=== PATIENT | female | born 1935 | race Caucasian/White ===

== ENCOUNTER 2020-11-27 10:23 | Inpatient (IN) | payer MEDICARE ==
[2020-11-27] MEDS ORDERED: Iopamidol-370 76% 500 ML 1 ML ONE (12:17)
--- NOTE | 2020-11-27 14:31 | PDOC.HHP ---
Hospitalist HPI - History of Present Illness Persistent hypoxia History of Present Illness: This is a 85-year-old white female with a history of cerebrovascular disease and a recent stroke as well as atrial fibrillation. She was in rehabilitation after her stroke and was starting to ambulate decently after 3 weeks but then had a sudden decline and hypoxia. She was admitted to [facility] with bilateral multifocal pneumonia. Her Covid test was negative x2. She had a CT scan without contrast that showed possible aspiration material in her bronchi. Apparently radiology would not do a CT with contrast to look for pulmonary emboli because she is starting to have dementia and her son did not know if she had a contrast allergy. She was evaluated by cardiology over at [facility] who recommended control of heart rate but did not think her congestive heart failure was the major actor in her hypoxia. She did have an elevated brain natretic peptide at that time. Patient required high doses of oxygen during her hospitalization. She was on broad-spectrum an tibiotics and completed a course of cefepime and vancomycin. Patient was still requiring high doses of oxygen 5 to 6 L and desaturating during physical therapy so the hospitalist at [facility] discussed the case with patient's son and recommended transferring to [facility] for pulmonology consult. Patient is without complaints at the bedside. She knows she is in a hospital but thought she was still in [place]. She did not know the year. She cannot remember why she is here. Hospitalist ROS - Review of Systems Constitutional: denies: fever, chills Eyes: denies: vision change, conjunctivae inflammation, eyelid inflammation Respiratory: denies: cough, shortness of breath Cardiovascular: denies: chest pain, palpitations Gastrointestinal: denies: nausea, vomiting, abdominal pain, diarrhea, constipation Genitourinary: denies: dysuria, hematuria Musculoskeletal: denies: neck pain, back pain Skin: denies: rash, lesions Neurological: reports: weakness All other systems reviewed; all pertinent +/- noted in HPI/Subj Hospitalist History - Past Medical History Source: patient, old records Other Medical History: 1. Cerebrovascular disease with recent stroke and residual right-sided weakness 2. Hypertension 3. Atrial fibrillation with diastolic dysfunction 4. Diabetes mellitus type 2 5. Oropharyngeal dysphagia 6. Hyperlipidemia - Past Surgical History Other Surgical History: No known surgeries - Family History Other Family History: No known family medical history - Social History Other Social History: No known history of alcohol tobacco or illicit drugs. Patient's medical power of civil attorney is her son Abdelrahman Monaco. Patient is a do not attempt resuscitation. - Exam General Appearance: NAD, awake alert Eye: PERRL, anicteric sclera ENT: moist mucosa ENT - other findings: On 5 L nasal cannula O2 Neck: supple, symmetric, no JVD Heart: RRR, no murmur, no gallops, no rubs Respiratory: CTAB, no wheezes, no rales, no ronchi Gastrointestinal: soft, non-tender, non-distended, normal bowel sounds Extremities: no cyanosis, no clubbing, no edema Skin: normal turgor, no rashes Neurological: cranial nerve grossly intact Neurological - other findings: Right upper and lower extremity weaker than the left Musculoskeletal: normal tone Psychiatric: normal affect, normal behavior, oriented to person. negative: oriented to place, oriented to time Hospitalist Results - Labs Additional comment: Lab and imaging reviewed from [facility]. Hospitalist H&P A/P - Plan Plan: Acute hypoxic respiratory failure: Patient had x-ray consistent with bacterial pneumonia and CT with concern for aspiration. However she still requires high doses of oxygen even after a full course of antibiotic treatment. No pulmonology consultation available at [facility]. Transfer was initiated for pulmonology consultation and consideration of bronchoscopy. I did consult Dr. Benson our scuba dive training instructor and discussed the case with him. No indications for bronchoscopy at this time. Suspect that patient may have continued congestive heart failure versus pulmonary embolism as source continued hypoxia. Patient has no known contrast allergy so after discussion with Dr. Benson will get a CTA of the chest. We will resume IV Lasix which was discontinued at [facility]. Pneumonia- possible aspiration: Patient had multifocal bilateral opacities on her initial chest x-ray. CT without contrast with bibasilar infiltrate, possible aspirated food, and some right upper lobe infiltrate. No overt aspiration on ST eval, modified barium swallow showing some aspiration with thin liquids by spoon. She has remained afebrile. Hypoxia improved initially but still on 6 L nasal cannula and desats with ambulation. Blood cultures have remained negative. Oropharyngeal dysphagia: Mild, thin liquids only Speech therapy has recommended thickening liquids to nectar thick NDD-2 ground with extra sauce/gravy Modified Barium Swallow IMPRESSION: Single episode of tracheal aspiration and penetration with thin barium liquids by spoon. No episodes of tracheal aspiration or penetration with thin barium liquids by cup. No episodes of tracheal aspiration or penetration with thin barium nectar, thick barium liquids, pudding and barium impregnated cookie. Reference speech pathology report for further details. Atrial fibrillation: New onset. Patient was initially controlled with diltiazem and carvedilol. However, she did eventually develop some bradycardia and the medicines had to be decreased. Continue with low-dose Eliquis which was started at [facility].. Hypertension: Continue Coreg, diltiazem, lisinopril. Awaiting discharge medication list from [facility]. Adjust dosing as indicated. Diabetes mellitus: Blood sugars controlled. Currently on Lantus with 10 units nightly and sliding scale insulin We will resume Metformin. Anxiety/depression: Continue with Zoloft and BuSpar. 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 Patient appears to still be requiring a significant amount of assistance. May need to consider additional rehab at discharge. I discussed clinical course, improvement, planned MBS, and possibility of rehab with son when she was at [facility] and he is interested in [facility] re[facility] should that be necessary on discharge. I did call patient's son again today and updated him about the patient's current status and our plan to do a CT angiography of the chest. The son did reiterate the patient is a do not attempt resuscitation.
[2020-11-27] MEDS ORDERED: Guaifenesin DM 100-10/5 ML UDCUP PO PRN (14:34)
[2020-11-27] MEDS ORDERED: Acetaminophen 650 MG Suppository PR PRN (14:34)
[2020-11-27] MEDS ORDERED: Senokot S 8.6-50 MG TAB PO PRN (14:34)
[2020-11-27] MEDS ORDERED: Acetaminophen 325 MG TAB PO PRN (14:34)
[2020-11-27] MEDS ORDERED: Ondansetron ODT 4 MG TAB PO PRN (14:34)
[2020-11-27] MEDS ORDERED: Ondansetron PF 4 MG/2 ML Vial IVP PRN (14:34)
[2020-11-27] MEDS ORDERED: Melatonin 3 MG TAB PO PRN (16:55)
[2020-11-27] MEDS ORDERED: Dextrose 5% in Water 1,000 ML IV PRN (16:58)
[2020-11-27] MEDS ORDERED: HumaLOG 300 UNITS/3 ML VIAL SC PRN (16:58)
[2020-11-27] MEDS ORDERED: Dextrose 50% Abboject 50 ML SYRINGE SLOW IVP PRN (16:58)
[2020-11-27] MEDS ORDERED: Furosemide 40 MG/4 ML VIAL SLOW IVP SCH (17:00)
[2020-11-27] MEDS: Carvedilol 6.25 MG TAB PO SCH (17:59)
--- NOTE | 2020-11-27 21:00 | CT ---
CT ANGIOGRAM OF THE CHEST: History: Hypoxia. Pulmonary embolism evaluation. Shortness of breath. Covid patient. Comparison: None. Correlation: Noncontrast chest CT, 11-22-2020 Technique: CT angiogram of the chest is performed in the axial plane. 3D reformatted images are submi tted for interpretation. FINDINGS: Mediastinum: No mass, lymphadenopathy or hematoma. There are non-enlarged mediastinal lymph nodes. Normal caliber aorta. Normal heart size. There are scattered coronary calcifications. No significant pericardial fluid. Reflux of contrast into the inferior vena cava suggesting right heart failure. Visualized Subdiaphrag matic structures do not demonstrate any acute abnormality. There are bilateral pleural effusions. Tracheal and central bronchi are patent. No pneumothorax. Re-demonstration of multifocal interstitial and alveolar opacities predominately in the right upper l obe, left upper lobe. Additional dependent opacities in the lung parenchyma may represent passive ate lectasis secondary to adjacent effusion. Superimposed pneumonia and/or aspiration cannot be excluded. There is a developing more focal mass-like opacity in the right upper lobe with slightly irregular m argin, measuring 1.4 x 1.2 cm. There are no lytic or blastic lesions within the osseous structures. There is a chronic remote compression deformity with vertebroplasty change in the lower thoracic spin e. Adequate contrast opacification of the pulmonary arterial system to the level of the segmental arteri es. No filling defect to suggest thromboembolism. IMPRESSION: 1. No evidence of pulmonary artery embolism to the level of the segmental arteries. 2. Re-demonstration of bilateral pleural effusion as well as multifocal lung parenchymal opacity . The distribution is not typical for Covid. Correlation for possible aspiration in the lung bases. 3. Developing mass-like opacity in the right upper lobe may represent a focal pneumonia. Continu ed surveillance to ensure complete resolution is recommended. POS: PPP
[2020-11-27] MEDS: guaiFENesin ER 600 MG TAB PO SCH (21:06)
[2020-11-27] MEDS: busPIRone HCl 5 MG TAB PO SCH (21:06)
[2020-11-27] MEDS: Atorvastatin Calcium 20 MG TAB PO SCH (21:07)
[2020-11-27] MEDS: Donepezil HCl 5 MG TAB PO SCH (21:07)
[2020-11-27] MEDS: Apixaban 5 MG TAB PO SCH (21:07)
[2020-11-27] MEDS: Famotidine 20 MG TAB PO SCH (21:07)
[2020-11-27] MEDS: Magnesium Oxide 400 MG TAB PO SCH (21:07)
[2020-11-27] MEDS: Insulin Glargine 8 UNITS in Pre-Filled Syringe 1 EACH SC SCH (21:10)
--- NOTE | 2020-11-27 21:46 | CON ---
DATE OF CONSULTATION: 11/27/2020 REASON FOR CONSULTATION: Possible need for bronchoscopy, given persistent infiltrates on x-ray. HISTORY OF PRESENT ILLNESS: The patient is a pleasantly demented 85-year-old female who was first admitted to the [facility] on 11/17/2020. At that time, she was complaining of increasing shortness of breath. She was noted to have a lower lobe infiltrate. She was put on antibiotics for multifocal pneumonia. It looks like she was seen by a Cardiology PA or nurse practitioner over there. I do not see any notes from a cardiology physician. The patient was transferred over here for possible need for bronchoscopy because her infiltrates not improved. She had bilateral effusions which have not been addressed and she has not been treated with any diuretics. An echocardiogram taken on 11/20/2020 showed diastolic dysfunction, dilated left atrium and mild mitral regurgitation. PAST MEDICAL HISTORY: Hypertension, stroke, dementia, diabetes mellitus. PAST SURGICAL HISTORY: Not known. SOCIAL HISTORY: Not known about tobacco or drug use in the past. The patient cannot have anything in the history. FAMILY MEDICAL HISTORY: Noncontributory. MEDICATIONS: Prior to admission: 1. Amlodipine. 2. Anastrozole. 3. Insulin. 4. Melatonin. 5. Metformin. 6. Atorvastatin. 7. Buspirone. 8. Carvedilol. 9. Donepezil. 10. Hydralazine. 11. Lisinopril. 12. Sertraline. REVIEW OF SYSTEMS: Not accurate secondary to patient's dementia. ALLERGIES: SULFA DRUGS. PHYSICAL EXAMINATION: VITAL SIGNS: Temperature 97.4, pulse 60, respirations 18, O2 sat 94% on 6 L, blood pressure 160/65. GENERAL: She is awake, alert, in no distress. HEENT: Unremarkable. NECK: No adenopathy or JVD. LUNGS: Scattered crackles. She also had diminished breath sounds in both bases. CARDIAC: S1, S2. Regular. ABDOMEN: Soft and nontender. EXTREMITIES: No clubbing, cyanosis, or edema. LABORATORY DATA: Her initial white blood cell count when she was admitted on 11/17 was 12.5, most recent one is 7.7; hematocrit 37.4, platelet count 376. Sodium 142, potassium 3.4, chloride 103, CO2 of 30, BUN 8, creatinine 0.5, glucose 111. Last BNP for 11/20 was 422. COVID test was negative. I reviewed the CT scan in detail. ASSESSMENT: This patient is presenting with either pneumonia or atypical pulmonary edema. She also has bilateral effusions suggestive of chronic diastolic heart dysfunction. Her albumin is somewhat low, but probably not low enough to cause pleural effusions. Her current unresolving hypoxemia may be secondary to the pneumonia. The heart failure or possibly pulmonary embolism. RECOMMENDATIONS: 1. Bronchoscopy is not indicated in this situation. 2. I would leave off antibiotics for the time being. 3. CT pulmonary angiogram to rule out PE. 4. Consider diuretics if CT pulmonary angiogram is negative. Job ID: [id number]
[2020-11-28] MEDS: Furosemide 40 MG/4 ML VIAL SLOW IVP SCH ×2 (05:16→14:41)
[2020-11-28 06:15] LABS: #Basophils 0.1 thou/uL (0.0-0.2); #Eosinphils 0.1 thou/uL (0.0-0.7); #Lymphocytes 2.1 thou/uL (1.20-3.40); #Monocytes 0.8 thou/uL (0.11-0.59); #Neutrophils 4.5 thou/uL (1.40-6.50); %Basophils 0.7 % (0.0-1.0); %Eosinophils 1.4 % (0.0-10.0); %Lymphocytes 27.4 % (21.0-51.0); %Monocytes 11.2 % (0.0-10.0); %Neutrophils 59.3 % (42.0-75.0); Hemoglobin 12.7 g/dL (12.0-16.0); Mean Corpuscular HGB CONC 32.9 g/dL (32.0-36.0); Mean Corpuscular Hemoglobin 29.4 pg (27.0-31.0); Mean Corpuscular Volume 89.2 fL (78.0-98.0); Mean Platelet Volume 6.1 fL (7.4-10.4); Platelet Count 419 thou/uL (130-400); RBC Distribution Width 13.9 % (11.5-14.5); Red Blood Cell (RBC) Count 4.33 mill/uL (4.20-5.40); White Blood Cell (WBC) Count 7.5 thou/uL (4.8-10.8)
[2020-11-28 06:38] LABS: Anion Gap 12 mmol/L (10-20); BUN (Urea Nitrogen) 8 mg/dL (9.8-20.1); Calc. Creatinine Clearance 64 mL/min (70-130); Calcium 8.1 mg/dL (7.8-10.44); Carbon Dioxide 31 mmol/L (23-31); Chloride 98 mmol/L (98-107); Glucose 114 mg/dL (83-110); Potassium 3.1 mmol/L (3.5-5.1); Sodium 138 mmol/L (136-145)
--- NOTE | 2020-11-28 08:18 | PDOC.HOSPP ---
- Subjective Encounter Date: 11/28/20 Encounter Time: 11:15 Subjective: Patient sitting up at side of bed with physical therapy. She denies complaints. Saturating well on nasal cannula oxygen at 4 L currently. They have not tried to stand patient up today. - Objective Vital Signs & Weight: Vital Signs (12 hours) Temp Pulse Resp BP Pulse Ox 11/28/20 07:43 97.4 F L 51 L 18 166/72 H 98 11/28/20 03:30 97.5 F L 59 L 20 169/79 H 99 11/28/20 00:45 166/81 H 11/27/20 23:35 97.4 F L 60 22 H 199/71 H 99 Weight Weight 132 lb 3.2 oz I&O: 11/27/20 11/28/20 11/29/20 06:59 06:59 06:59 Intake Total 134 Output Total 800 Balance -666 Result Diagrams: 11/28/20 05:50 11/28/20 05:50 Additional Labs: Accuchecks 11/28/20 11/27/20 11/27/20 05:50 21:10 16:44 POC Glucose 104 H 187 H 121 H Hospitalist ROS - Review of Systems Constitutional: denies: fever, chills Respiratory: denies: cough, shortness of breath Cardiovascular: denies: chest pain, palpitations Gastrointestinal: denies: nausea, vomiting, abdominal pain - Medication Medications: Active Medications Generic Name Dose Route Start Last Admin Trade Name Freq PRN Reason Stop Dose Admin Apixaban 5 mg 11/27/20 21:00 11/27/20 21:07 Apixaban 5 Mg Tab PO 5 mg BID BITA Administration Atorvastatin Calcium 20 mg 11/27/20 21:00 11/27/20 21:07 Atorvastatin Calcium 20 Mg Tab PO 20 mg HS BITA Administration Buspirone HCl 5 mg 11/27/20 21:00 11/27/20 21:06 Buspirone Hcl 5 Mg Tab PO 5 mg TID BITA Administration Carvedilol 12.5 mg 11/27/20 17:00 11/27/20 17:59 Carvedilol 6.25 Mg Tab PO 12.5 mg BID-WM BITA Administration Donepezil HCl 5 mg 11/27/20 21:00 11/27/20 21:07 Donepezil Hcl 5 Mg Tab PO 5 mg HS BITA Administration Famotidine 20 mg 11/27/20 21:00 11/27/20 21:07 Famotidine 20 Mg Tab PO 20 mg BID BITA Administration Furosemide 40 mg 11/28/20 06:00 11/28/20 05:16 Furosemide 40 Mg/4 Ml Vial SLOW IVP 40 mg 0600,1400 BITA Administration Guaifenesin 1,200 mg 11/27/20 21:00 11/27/20 21:06 Guaifenesin Er 600 Mg Tab PO Not Given Q12HR [facility] Insulin Glargine 8 units/ 0.08 mls @ 0 mls/hr 11/27/20 21:00 11/27/20 21:10 Miscellaneous Medication SC 0.08 mls HS BITA Administration Magnesium Oxide 400 mg 11/27/20 21:00 11/27/20 21:07 Magnesium Oxide 400 Mg Tab PO 400 mg BID BITA Administration Melatonin 3 mg 11/27/20 16:55 11/27/20 23:59 Melatonin 3 Mg Tab PO 3 mg HSPRN PRN Administration Insomnia Sertraline HCl 25 mg 11/27/20 21:00 11/27/20 21:06 Sertraline Hcl 25 Mg Tab PO 25 mg TID BITA Administration Hospitalist Exam Vitals: Vital Signs (12 hours) Temp Pulse Resp BP Pulse Ox 11/28/20 07:43 97.4 F L 51 L 18 166/72 H 98 11/28/20 03:30 97.5 F L 59 L 20 169/79 H 99 11/28/20 00:45 166/81 H 11/27/20 23:35 97.4 F L 60 22 H 199/71 H 99 Weight Weight 132 lb 3.2 oz General Appearance: NAD, awake alert ENT: moist mucosa Heart: RRR, no murmur, no gallops, no rubs Respiratory: CTAB, no wheezes, no rales, no ronchi Gastrointestinal: soft, non-tender, non-distended, normal bowel sounds Skin: no rashes Psychiatric: normal affect, normal behavior Hosp A/P - Plan Acute hypoxic respiratory failure: Patient had x-ray consistent with bacterial pneumonia and CT with concern for aspiration. However she still requires high doses of oxygen even after a full course of antibiotic treatment. No pulmonology consultation available at [facility]. Transfer was initiated for pulmonology consultation and consideration of bronchoscopy. I did consult Dr. Benson our oracle bpm developer and discussed the case with him. No indications for bronchoscopy at this time. Suspect that patient may have continued congestive heart failure versus pulmonary embolism as source continued hypoxia. Patient has no known contrast allergy so after discussion with Dr. Benson will get a CTA of the chest- no PE found, c/w congestion and aspiration We will resumed IV Lasix which was discontinued at [facility]. Patient's O2 sats seem to be doing a little better today. Pneumonia- possible aspiration: Patient had multifocal bilateral opacities on her initial chest x-ray. CT without contrast with bibasilar infiltrate, possible aspirated food, and some right upper lobe infiltrate. No overt aspiration on ST eval, modified barium swallow showing some aspiration with thin liquids by spoon. She has remained afebrile. Hypoxia improved initially but still on 5 L nasal cannula and desats with ambulation. Blood cultures have remained negative. Patient completed entire course of Cefepime and Vancomycin. Oropharyngeal dysphagia: Mild, thin liquids only Speech therapy has recommended thickening liquids to nectar thick NDD-2 ground with extra sauce/gravy Modified Barium Swallow IMPRESSION: Single episode of tracheal aspiration and penetration with thin barium liquids by spoon. No episodes of tracheal aspiration or penetration with thin barium liquids by cup. No episodes of tracheal aspiration or penetration with thin barium nectar, thick barium liquids, pudding and barium impregnated cookie. Reference speech pathology report for further details. Atrial fibrillation: New onset. Patient was initially controlled with diltiazem and carvedilol. However, she did eventually develop some bradycardia and the medicines had to be decreased. Continue with low-dose Eliquis which was started at [facility].. Hypertension: Continue Coreg, diltiazem, lisinopril. Awaiting discharge medication list from [facility]. Adjust dosing as indicated. Diabetes mellitus: Blood sugars controlled. Currently on Lantus with 10 units nightly and sliding scale insulin We will resume Metformin. Anxiety/depression: Continue with Zoloft and BuSpar. 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 Patient appears to still be requiring a significant amount of assistance. May need to consider additional rehab at discharge. I discussed clinical course, improvement, planned MBS, and possibility of rehab with son when she was at [facility] and he is interested in [facility] rehab should that be necessary on discharge. I did call patient's son again today and updated him about the patient's current status and our plan to do a CT angiography of the chest. The son did reiterate the patient is a do not attempt resuscitation. Hypokalemia: We will replete orally. We will recheck a basic metabolic panel in the morning. CT ANGIOGRAM OF THE CHEST: (11/27/2020) IMPRESSION: 1. No evidence of pulmonary artery embolism to the level of the segmental arteries. 2. Re-demonstration of bilateral pleural effusion as well as multifocal lung parenchymal opacity. The distribution is not typical for Covid. Correlation for possible aspiration in the lung bases. 3. Developing mass-like opacity in the right upper lobe may represent a focal pneumonia. Continued surveillance to ensure complete resolution is recommended.
[2020-11-28] MEDS: Carvedilol 6.25 MG TAB PO SCH ×2 (08:42→16:23)
[2020-11-28] MEDS: Magnesium Oxide 400 MG TAB PO SCH ×2 (08:42→21:24)
[2020-11-28] MEDS: guaiFENesin ER 600 MG TAB PO SCH ×2 (08:43→21:24)
[2020-11-28] MEDS: busPIRone HCl 5 MG TAB PO SCH ×3 (08:43→21:23)
[2020-11-28] MEDS: metFORMIN 500 MG TAB PO SCH (08:43)
[2020-11-28] MEDS: Apixaban 5 MG TAB PO SCH ×2 (08:43→21:23)
[2020-11-28] MEDS: Famotidine 20 MG TAB PO SCH ×2 (08:43→21:24)
[2020-11-28] MEDS: Lisinopril 20 MG TAB PO SCH (08:43)
[2020-11-28] MEDS: Anastrozole 1 MG TAB PO SCH (08:43)
--- NOTE | 2020-11-28 09:52 | PRG ---
DATE OF SERVICE: 11/28/2020 SUBJECTIVE: The patient feels better today. Her oxygen has been weaned down to 4 L and her O2 saturations running about 98%. Her chest CT showed some interstitial changes bilaterally indicative of recent pneumonia. She also has had bilateral effusions, but no pulmonary emboli. OBJECTIVE: HEENT: Unremarkable. NECK: No JVD. LUNGS: Clear. CARDIAC: S1 and S2. Regular. ABDOMEN: Soft. EXTREMITIES: No edema. ASSESSMENT: 1. Probably aspiration pneumonia in the resolution phase. 2. Pleural effusions, probably indicative of diastolic heart failure. PLAN: I would diurese the patient some. The x-ray changes should resolve with time provided she is not chronically aspirating. No further recommendations. We will sign off. Please recall if further assistance needed. Job ID: [id number] [facility]
--- NOTE | 2020-11-28 12:14 | EKG ---
Test Reason : Blood Pressure : / mmHG Vent. Rate : 056 BPM Atrial Rate : 056 BPM P-R Int : 324 ms QRS Dur : 080 ms QT Int : 470 ms P-R-T Axes : 079 -24 032 degrees QTc Int : 453 ms Sinus bradycardia with marked sinus arrhythmia with 1st degree A-V block Inferior infarct , age undetermined Possible Anterior infarct , age undetermined Abnormal ECG Confirmed by DR. Tsering ANGUIANO ([id number]) on 11/28/2020 12:14:18 PM Referred By: CJ Confirmed By:DR. Tsering ANGUIANO
[2020-11-28] MEDS: HumaLOG 300 UNITS/3 ML VIAL SC PRN ×2 (12:34→16:23)
[2020-11-28] MEDS ORDERED: Potassium Chloride 20 MEQ TAB PO SCH (14:30)
[2020-11-28] MEDS: Insulin Glargine 8 UNITS in Pre-Filled Syringe 1 EACH SC SCH (21:23)
[2020-11-28] MEDS: Atorvastatin Calcium 20 MG TAB PO SCH (21:23)
[2020-11-28] MEDS: Donepezil HCl 5 MG TAB PO SCH (21:23)
[2020-11-29] MEDS: Furosemide 40 MG/4 ML VIAL SLOW IVP SCH ×2 (05:04→13:07)
[2020-11-29 06:20] LABS: Hemoglobin 13.3 g/dL (12.0-16.0); Platelet Count 432 thou/uL (130-400)
[2020-11-29 06:37] LABS: Anion Gap 16 mmol/L (10-20); BUN (Urea Nitrogen) 13 mg/dL (9.8-20.1); Calc. Creatinine Clearance 61 mL/min (70-130); Calcium 8.5 mg/dL (7.8-10.44); Carbon Dioxide 29 mmol/L (23-31); Chloride 98 mmol/L (98-107); Glucose 128 mg/dL (83-110); Potassium 3.4 mmol/L (3.5-5.1); Sodium 140 mmol/L (136-145)
[2020-11-29] MEDS: Carvedilol 6.25 MG TAB PO SCH (07:56)
[2020-11-29] MEDS: Magnesium Oxide 400 MG TAB PO SCH (07:57)
[2020-11-29] MEDS: busPIRone HCl 5 MG TAB PO SCH ×2 (07:57→14:46)
[2020-11-29] MEDS: Famotidine 20 MG TAB PO SCH (07:57)
[2020-11-29] MEDS: guaiFENesin ER 600 MG TAB PO SCH (07:57)
[2020-11-29] MEDS: Apixaban 5 MG TAB PO SCH (07:58)
[2020-11-29] MEDS: Lisinopril 20 MG TAB PO SCH (07:58)
[2020-11-29] MEDS: Anastrozole 1 MG TAB PO SCH (07:58)
[2020-11-29] MEDS: metFORMIN 500 MG TAB PO SCH (07:58)
[2020-11-29] MEDS ORDERED: Potassium Chloride 20 MEQ TAB PO SCH (08:00)
[2020-11-29] MEDS ORDERED: HYDROcodone/Acetaminophen 5/325 mg Tablet PO PRN (08:38)
[2020-11-29] MEDS ORDERED: Sodium Chloride 0.65% Nasal 44 ML BOT EA NARE PRN (08:38)
[2020-11-29] MEDS ORDERED: Loperamide HCl 2 MG CAP PO PRN (08:38)
[2020-11-29] MEDS ORDERED: Zolpidem Tartrate 5 MG TAB PO PRN (08:38)
[2020-11-29] MEDS ORDERED: Cepastat Lozenges 1 LOZ PO PRN (08:38)
[2020-11-29] MEDS ORDERED: GUAIFENESIN SF SOLN 200 MG/10 ML UDCUP PO PRN (08:38)
[2020-11-29] MEDS ORDERED: Loratadine 10 MG TAB PO PRN (08:38)
[2020-11-29] MEDS ORDERED: hydrALAZINE 20 MG/ML VIAL SLOW IVP PRN (08:38)
--- NOTE | 2020-11-29 12:20 | PDOC.DS.DS ---
Provider Date of Admission: 11/27/20 12:24 Date of Discharge: 11/29/20 Admitting Provider: Johnnie Mullins MD Consultations: Pulmonary Primary Care Physician: NO PCP PROVIDER Course Hospital Course: 85-year-old female who was admitted to [facility] on November 17, 2020, on admission patient had echocardiography which showed diastolic dysfunction, pulmonary hypertension, CT chest on November 21, 2020 which showed bilateral and right upper lobe parenchymal opacity, bibasilar consolidation was possible, suspected for aspiration pneumonia, patient also had moderate bilatera l pleural fluid, patient was evaluated by speech therapy and patient also had modified barium swallow, cardiology was also following during her admission at [facility], patient was discharged from the hospital on November 27, 2020 for pulmonology evaluation, reason for transfer was possible need for bronchoscopy, after admission in our hospital we consulted pulmonology, pulmonology recommended that bronchoscopy not indicated, CT angiogram was recommended and it was negative for pulmonary embolism, subsequently based on that finding we initiated diuretic therapy and patient had some improvement, patient will need repeat imaging after diuretic therapy, I have seen and examined patient bedside today, patient is lying flat without any short of breath, she is maintaining saturation 98% on 2 to 3 L, during this admission we have increased Lasix to 40 mg p.o. twice daily upon discharge and while in hospital she was given IV Lasix. She does not appear significant volume overload at this point. Regarding aspiration pneumonia patient has been completed antibiotic therapy at other hospital, she was not requiring any antibiotic therapy on discharge. Paperwork for discharge done, patient is going to rehab for more PT OT Resuscitation Status: 11/27/20 16:49 Resuscitation Status Routine Resuscitation Status: DNAR: NO Resuscitation Discussed with: Patient's son and MPOA Lab Results: 11/29/20 05:42 11/29/20 05:42 Abnormal Lab Results - Last 48 hrs 11/28/20 05:50: Potassium 3.1 L, BUN 8 L 11/28/20 05:50: Plt Count 419 H, MPV 6.1 L, Monocytes % 11.2 H, Monocytes # 0.8 H 11/29/20 05:42: Potassium 3.4 L 11/29/20 05:42: Plt Count 432 H Vitals: Vital Signs (12 hours) Temp Pulse Resp BP Pulse Ox 11/29/20 12:00 97.4 F L 59 L 20 169/80 H 98 11/29/20 08:00 97.8 F 60 22 H 165/75 H 97 11/29/20 07:55 60 16 97 11/29/20 04:00 97.8 F 59 L 18 170/80 H 96 Weight Weight 132 lb 3.2 oz Physical Exam: The patient was seen and examined on the day of discharge. General Appearance: NAD, awake alert Eye: PERRL, anicteric sclera ENT: normocephalic atraumatic, no oropharyngeal lesions Neck: supple, symmetric, no JVD, no thyromegaly Respiratory: no wheezes, no ronchi Respiratory - other findings: Few coarse breath sound at base, Cardiovascular: RRR, no murmur, no gallops, no rubs Gastrointestinal: soft, non-tender, non-distended, normal bowel sounds Extremities: no cyanosis, no clubbing, no edema Skin: normal turgor, no lesions Neurological: no focal deficits Musculoskeletal: normal tone, normal strength PSYCH: normal affect, normal behavior Problem (1) Acute on chronic diastolic heart failure Code(s): I50.33 - ACUTE ON CHRONIC DIASTOLIC (CONGESTIVE) HEART FAILURE Status: Acute (2) Aspiration pneumonia Code(s): J69.0 - PNEUMONITIS DUE TO INHALATION OF FOOD AND VOMIT Status: Resolved (3) Acute respiratory failure with hypoxia Code(s): J96.01 - ACUTE RESPIRATORY FAILURE WITH HYPOXIA Status: Acute (4) Anxiety and depression Code(s): F41.9 - ANXIETY DISORDER, UNSPECIFIED; F32.9 - MAJOR DEPRESSIVE DISOR MIRI, SINGLE EPISODE, UNSPECIFIED Status: Chronic (5) Atrial fibrillation Code(s): I48.91 - UNSPECIFIED ATRIAL FIBRILLATION Status: Chronic Qualifiers: Atrial fibrillation type: paroxysmal Qualified Code(s): I48.0 - Paroxysmal atrial fibrillation (6) Hypertension Code(s): I10 - ESSENTIAL (PRIMARY) HYPERTENSION Status: Chronic Qualifiers: Hypertension type: essential hypertension Qualified Code(s): I10 - Essential (primary) hypertension (7) Dementia Code(s): F03.90 - UNSPECIFIED DEMENTIA WITHOUT BEHAVIORAL DISTURBANCE Status: Chronic Qualifiers: Dementia behavioral disturbance: without behavioral disturbance (8) Physical deconditioning Code(s): R53.81 - OTHER MALAISE Status: Chronic Plan Prescriptions: Furosemide [Lasix] 40 mg PO BID #60 tab Home Medications: Medication Instructions Recorded Confirmed Type Amlodipine Besylate [amLODIPine 10 mg PO DAILY 11/18/20 11/28/20 History Besylate] Anastrozole [Arimidex] 1 mg PO DAILY 11/18/20 11/28/20 History Atorvastatin Calcium [Lipitor] 20 mg pe PO HS 11/18/20 11/28/20 History Donepezil HCl [Aricept] 5 mg PO HS 11/18/20 11/28/20 History Insulin Detemir [Levemir Flextouch] 8 units SC DAILY 11/18/20 11/28/20 History Ondansetron [Zofran ODT] 4 mg PO Q8HR PRN 11/18/20 11/28/20 History Sertraline HCl [Zoloft] 25 mg PO TID 11/18/20 11/28/20 History busPIRone HCl [Buspar] 5 mg PO TID 11/18/20 11/28/20 History hydrALAZINE HCl [Hydralazine HCl] 50 mg PO Q8HR 11/18/20 11/28/20 History metFORMIN [Glucophage] 500 mg PO HS 11/18/20 11/28/20 History Acetaminophen [Tylenol Regular 650 mg PO Q4H PRN tab 11/27/20 11/28/20 Rx Strength] Apixaban [Eliquis] 2.5 mg PO BID tab 11/27/20 11/28/20 Rx Magnesium Oxide 400 mg PO BID tab 11/27/20 11/28/20 Rx guaiFENesin ER [Mucinex] 1,200 mg PO Q12HR tab 11/27/20 11/28/20 Rx ALPRAZolam 0.25 mg PO BID PRN 11/28/20 11/28/20 History Alendronate Sodium 70 mg PO Q7DAYS 11/28/20 11/28/20 History Carvedilol [Coreg] 2 tab PO BID 11/28/20 11/28/20 History Gabapentin 100 mg PO DAILY 11/28/20 11/28/20 History Lisinopril [Zestril] 20 mg PO DAILY 11/28/20 11/28/20 History Metoprolol Tartrate 25 mg PO 11/28/20 History traZODone HCl [Trazodone HCl] 75 mg PO HS 11/28/20 11/28/20 History Furosemide [Lasix] 40 mg PO BID #60 tab 11/29/20 Rx Allergies: Sulfa (Sulfonamide Antibiotics) Allergy (Verified 11/17/20 21:38) Activity:: Activity as Tolerated Nourishment:: Heart Healthy Diet Therapies:: Occupational Therapy, Physical Therapy Equipment/Supplies:: Not Applicable IV Therapy:: Not Applicable Referrals: PROVIDER,NO PCP [Primary Care Provider] - Flash Benson MD [Active] - ( DIRECTED ) Disposition: REHABILITATION INPATIENT Quality CORE MEASURES:: N/A
[2020-11-29] MEDS: HumaLOG 300 UNITS/3 ML VIAL SC PRN (13:07)
[2020-11-29 15:30] VITALS: BP 129/70; TEMP 97.8
== END 2020-11-29 15:45 | DRG 177 ==
LOC: T4-A 12:24
PROVIDERS: ADMIT Internal Medicine; ATTEND Internal Medicine
DX: J69.0 Pneumonitis due to inhalation of food and vomit (principal); I50.33 Acute on chronic diastolic (congestive) heart failure; J96.01 Acute respiratory failure with hypoxia; I69.351 Hemiplegia and hemiparesis following cerebral infarction affecting right dominant side; Z66 Do not resuscitate; Z20.822 Contact with and (suspected) exposure to COVID-19; F41.9 Anxiety disorder, unspecified; F32.9 Major depressive disorder, single episode, unspecified; I48.0 Paroxysmal atrial fibrillation; F03.90 Unspecified dementia, unspecified severity, without behavioral disturbance, psychotic disturbance, mood disturbance, and anxiety; R13.12 Dysphagia, oropharyngeal phase; I11.0 Hypertensive heart disease with heart failure; E78.5 Hyperlipidemia, unspecified; E11.9 Type 2 diabetes mellitus without complications; I34.0 Nonrheumatic mitral (valve) insufficiency; E87.6 Hypokalemia; Z88.2 Allergy status to sulfonamides; Z78.1 Physical restraint status; Z79.899 Other long term (current) drug therapy; Z79.84 Long term (current) use of oral hypoglycemic drugs
CPT/HCPCS: 36415; 36416; 71275; 80048; 85014; 85018; 85025; 85049; 93005; 93010; J1815; J1940; Q9967

== ENCOUNTER 2021-01-22 16:12 | Inpatient (IN) | payer MEDICARE ==
[~2021-01-22 16:12] MED LIST: Iopamidol-370 76% 500 ML 1 ML ONE
[2021-01-22 17:10] LABS: Bilirubin Negative (Negative); Blood, Urine Negative (Negative); Clarity Turbid (Clear); Glucose, Urine (Dipstick) Normal (Negative); Ketone, Urine Negative (Negative); Leukocyte 250 Leu/uL (Negative); Nitrite 2+ (Negative); Protein, Urine (Dipstick) Negative (Neg-Trace); RBC/HPF 0-3 HPF (0-3); Specific Gravity, Urine 1.014 (1.002-1.036); Squamous Epithelial 0-3 HPF (0-3); Urobilinogen Normal mg/dL (Less than 2); WBC/HPF 21-50 HPF (0-3); pH, Urine 6.5 (5.0-9.0)
[2021-01-22 17:11] LABS: #Eosinphils 0.1 thou/uL (0.0-0.7); #Neutrophils 6.7 thou/uL (1.40-6.50); %Basophils 0.4 % (0.0-1.0); %Eosinophils 0.7 % (0.0-10.0); %Lymphocytes 20.5 % (21.0-51.0); %Monocytes 10.2 % (0.0-10.0); %Neutrophils 68.1 % (42.0-75.0); Hemoglobin 13.4 g/dL (12.0-16.0); Mean Corpuscular HGB CONC 31.8 g/dL (32.0-36.0); Mean Corpuscular Hemoglobin 28.9 pg (27.0-31.0); Mean Corpuscular Volume 90.8 fL (78.0-98.0); Mean Platelet Volume 6.7 fL (7.4-10.4); Platelet Count 348 thou/uL (130-400); RBC Distribution Width 14.3 % (11.5-14.5); Red Blood Cell (RBC) Count 4.65 mill/uL (4.20-5.40); White Blood Cell (WBC) Count 9.8 thou/uL (4.8-10.8)
[2021-01-22 17:12] LABS: Bacteria/HPF 1+ HPF (None Seen)
[2021-01-22] MEDS ORDERED: cefTRIAXone\\ROCEPHIN 2 GM VIAL ONE (17:22)
[2021-01-22 17:34] LABS: ALT (SGPT) 22 U/L (8-55); AST (SGOT) 21 U/L (5-34); Alkaline Phosphatase 79 U/L (40-110); Anion Gap 15 mmol/L (10-20); BUN (Urea Nitrogen) 11 mg/dL (9.8-20.1); Bilirubin, Total 0.7 mg/dL (0.2-1.2); CK (CPK) 44 U/L (29-168); Calc. Creatinine Clearance 0 mL/min (70-130); Calcium 8.7 mg/dL (7.8-10.44); Carbon Dioxide 25 mmol/L (23-31); Chloride 102 mmol/L (98-107); Globulin 3.3 g/dL (2.4-3.5); Glucose 206 mg/dL (83-110); Lipase 50 U/L (8-78); Potassium 3.8 mmol/L (3.5-5.1); Protein, Total 7.3 g/dL (5.8-8.1); Sodium 138 mmol/L (136-145)
[2021-01-22] MEDS ORDERED: Cefepime 2 GM VIAL ONE (19:12)
[2021-01-22] MEDS ORDERED: Vancomycin 1 GM/200 ML BAG ONE (19:55)
[2021-01-22] MEDS ORDERED: Dextrose 5% in Water 1,000 ML IV PRN (20:47)
[2021-01-22] MEDS ORDERED: Dextrose 50% Abboject 50 ML SYRINGE SLOW IVP PRN (20:47)
[2021-01-22] MEDS ORDERED: Acetaminophen 325 MG TAB PO PRN (20:47)
[2021-01-22] MEDS ORDERED: Furosemide 40 MG/4 ML VIAL SLOW IVP SCH (21:15)
[2021-01-22 21:37] LABS: SARS-CoV-2 NAA Rapid Test Not Detected (NotDetected)
[2021-01-22] MEDS: Azithromycin 500 MG in Sodium Chloride 0.9% 250 ML 250 ML IVPB SCH (22:08)
[2021-01-22 22:45] VITALS: BMI 21.1
[2021-01-23 05:59] LABS: #Eosinphils 0.1 thou/uL (0.0-0.7); #Lymphocytes 1.7 thou/uL (1.20-3.40); #Neutrophils 5.8 thou/uL (1.40-6.50); %Basophils 0.5 % (0.0-1.0); %Eosinophils 0.9 % (0.0-10.0); %Lymphocytes 19.6 % (21.0-51.0); %Monocytes 11.6 % (0.0-10.0); %Neutrophils 67.4 % (42.0-75.0); Hemoglobin 12.6 g/dL (12.0-16.0); Mean Corpuscular HGB CONC 32.1 g/dL (32.0-36.0); Mean Corpuscular Volume 90.3 fL (78.0-98.0); Mean Platelet Volume 6.6 fL (7.4-10.4); Platelet Count 335 thou/uL (130-400); RBC Distribution Width 14.1 % (11.5-14.5); Red Blood Cell (RBC) Count 4.34 mill/uL (4.20-5.40); White Blood Cell (WBC) Count 8.6 thou/uL (4.8-10.8)
[2021-01-23 06:20] LABS: Anion Gap 14 mmol/L (10-20); BUN (Urea Nitrogen) 10 mg/dL (9.8-20.1); Calc. Creatinine Clearance 60 mL/min (70-130); Calcium 8.1 mg/dL (7.8-10.44); Carbon Dioxide 24 mmol/L (23-31); Chloride 105 mmol/L (98-107); Glucose 128 mg/dL (83-110); Potassium 3.2 mmol/L (3.5-5.1); Sodium 140 mmol/L (136-145)
[2021-01-23] MEDS: Furosemide 40 MG/4 ML VIAL SLOW IVP SCH (09:34)
[2021-01-23] MEDS: busPIRone HCl 5 MG TAB PO SCH ×2 (16:31→22:40)
[2021-01-23] MEDS ORDERED: FLU VACC QS2020-21(65YR UP)/PF 240 MCG/0.7 ML SYRINGE IM ONE (21:00)
[2021-01-23] MEDS: Atorvastatin Calcium 20 MG TAB PO SCH (22:39)
[2021-01-23] MEDS: Apixaban 5 MG TAB PO SCH (22:39)
[2021-01-23] MEDS: traZODone HCl 50 MG TAB PO PRN (22:40)
[2021-01-23] MEDS: Carvedilol 25 MG TAB PO SCH (22:40)
[2021-01-23] MEDS: Donepezil HCl 5 MG TAB PO SCH (22:40)
[2021-01-23] MEDS: Magnesium Oxide 400 MG TAB PO SCH (22:41)
[2021-01-23] MEDS: Azithromycin 500 MG in Sodium Chloride 0.9% 250 ML 250 ML IVPB SCH (22:43)
[2021-01-23] MEDS: cefTRIAXone\\ROCEPHIN 1 GM in Sodium Chloride 0.9% 100 ML IVPB SCH (23:50)
[2021-01-24 07:11] LABS: Anion Gap 13 mmol/L (10-20); BUN (Urea Nitrogen) 13 mg/dL (9.8-20.1); Calc. Creatinine Clearance 58 mL/min (70-130); Calcium 8.3 mg/dL (7.8-10.44); Carbon Dioxide 28 mmol/L (23-31); Chloride 104 mmol/L (98-107); Glucose 175 mg/dL (83-110); Potassium 3.6 mmol/L (3.5-5.1); Sodium 141 mmol/L (136-145)
[2021-01-24] MEDS ORDERED: Melatonin 3 MG TAB PO PRN (07:31)
[2021-01-24] MEDS: Anastrozole 1 MG TAB PO SCH (08:42)
[2021-01-24] MEDS: Famotidine 20 MG TAB PO SCH (08:42)
[2021-01-24] MEDS: Alogliptin 25 MG TAB PO SCH (08:43)
[2021-01-24] MEDS: metFORMIN 500 MG TAB PO SCH (08:44)
[2021-01-24] MEDS: Carvedilol 25 MG TAB PO SCH ×2 (08:45→20:17)
[2021-01-24] MEDS: Magnesium Oxide 400 MG TAB PO SCH ×2 (08:45→20:16)
[2021-01-24] MEDS: Apixaban 5 MG TAB PO SCH ×2 (08:45→20:16)
[2021-01-24] MEDS: Lisinopril 20 MG TAB PO SCH (08:47)
[2021-01-24] MEDS: Potassium Chloride 20 MEQ TAB PO SCH (08:47)
[2021-01-24] MEDS: Furosemide 40 MG/4 ML VIAL SLOW IVP SCH (08:47)
[2021-01-24] MEDS: Amlodipine 10 MG TAB PO SCH (08:48)
[2021-01-24] MEDS: busPIRone HCl 5 MG TAB PO SCH ×3 (08:50→20:16)
[2021-01-24] MEDS ORDERED: Senokot 8.6 MG TAB PO SCH (09:00)
[2021-01-24] MEDS: Senokot 8.6 MG TAB PO SCH (09:38)
[2021-01-24] MEDS: Lantus 1000 UNITS/10 ML VIAL SC SCH (10:07)
[2021-01-24] MEDS: Atorvastatin Calcium 20 MG TAB PO SCH (20:16)
[2021-01-24] MEDS: traZODone HCl 50 MG TAB PO PRN (20:17)
[2021-01-24] MEDS: Donepezil HCl 5 MG TAB PO SCH (20:18)
[2021-01-24] MEDS: Azithromycin 500 MG in Sodium Chloride 0.9% 250 ML 250 ML IVPB SCH (20:20)
[2021-01-24] MEDS: cefTRIAXone\\ROCEPHIN 1 GM in Sodium Chloride 0.9% 100 ML IVPB SCH (21:57)
[2021-01-25] MEDS: Magnesium Oxide 400 MG TAB PO SCH ×2 (09:22→20:46)
[2021-01-25] MEDS: Lisinopril 20 MG TAB PO SCH (09:22)
[2021-01-25] MEDS: Senokot 8.6 MG TAB PO SCH (09:22)
[2021-01-25] MEDS: Alogliptin 25 MG TAB PO SCH (09:22)
[2021-01-25] MEDS: Anastrozole 1 MG TAB PO SCH (09:23)
[2021-01-25] MEDS: Carvedilol 25 MG TAB PO SCH ×2 (09:23→20:46)
[2021-01-25] MEDS: Famotidine 20 MG TAB PO SCH (09:23)
[2021-01-25] MEDS: Amlodipine 10 MG TAB PO SCH (09:23)
[2021-01-25] MEDS: Potassium Chloride 20 MEQ TAB PO SCH (09:23)
[2021-01-25] MEDS: busPIRone HCl 5 MG TAB PO SCH ×3 (09:23→20:46)
[2021-01-25] MEDS: Apixaban 5 MG TAB PO SCH ×2 (09:23→20:46)
[2021-01-25] MEDS: metFORMIN 500 MG TAB PO SCH (09:23)
[2021-01-25] MEDS: Furosemide 40 MG/4 ML VIAL SLOW IVP SCH (09:24)
[2021-01-25] MEDS: Lantus 1000 UNITS/10 ML VIAL SC SCH (09:24)
[2021-01-25] MEDS ORDERED: HumaLOG 300 UNITS/3 ML VIAL SC PRN (13:15)
[2021-01-25] MEDS ORDERED: Dextrose 50% Abboject 50 ML SYRINGE IVP PRN (13:15)
[2021-01-25] MEDS ORDERED: Dextrose 5% in Water 1,000 ML IV PRN (13:15)
[2021-01-25] MEDS: HumaLOG 300 UNITS/3 ML VIAL SC PRN (13:23)
[2021-01-25] MEDS: cefTRIAXone\\ROCEPHIN 1 GM in Sodium Chloride 0.9% 100 ML IVPB SCH (20:45)
[2021-01-25] MEDS: Donepezil HCl 5 MG TAB PO SCH (20:46)
[2021-01-25] MEDS: Atorvastatin Calcium 20 MG TAB PO SCH (20:46)
[2021-01-25] MEDS: Azithromycin 500 MG in Sodium Chloride 0.9% 250 ML 250 ML IVPB SCH (21:30)
[2021-01-26] MEDS: metFORMIN 500 MG TAB PO SCH (08:51)
[2021-01-26] MEDS: Potassium Chloride 20 MEQ TAB PO SCH (08:51)
[2021-01-26] MEDS: Magnesium Oxide 400 MG TAB PO SCH ×2 (08:51→20:32)
[2021-01-26] MEDS: Famotidine 20 MG TAB PO SCH (08:51)
[2021-01-26] MEDS: Anastrozole 1 MG TAB PO SCH (08:51)
[2021-01-26] MEDS: busPIRone HCl 5 MG TAB PO SCH ×3 (08:51→20:32)
[2021-01-26] MEDS: Senokot 8.6 MG TAB PO SCH (08:51)
[2021-01-26] MEDS: Lisinopril 20 MG TAB PO SCH (08:52)
[2021-01-26] MEDS: Carvedilol 25 MG TAB PO SCH ×2 (08:52→20:32)
[2021-01-26] MEDS: Amlodipine 10 MG TAB PO SCH (08:52)
[2021-01-26] MEDS: Apixaban 5 MG TAB PO SCH ×2 (08:52→20:32)
[2021-01-26] MEDS: Alogliptin 25 MG TAB PO SCH (08:52)
[2021-01-26] MEDS: Furosemide 40 MG/4 ML VIAL SLOW IVP SCH (08:52)
[2021-01-26] MEDS: Lantus 1000 UNITS/10 ML VIAL SC SCH (08:53)
[2021-01-26] MEDS: Atorvastatin Calcium 20 MG TAB PO SCH (20:32)
[2021-01-26] MEDS: Donepezil HCl 5 MG TAB PO SCH (20:32)
[2021-01-26] MEDS: cefTRIAXone\\ROCEPHIN 1 GM in Sodium Chloride 0.9% 100 ML IVPB SCH (20:33)
[2021-01-26] MEDS: Azithromycin 500 MG in Sodium Chloride 0.9% 250 ML 250 ML IVPB SCH (20:33)
[2021-01-27 06:45] LABS: #Eosinphils 0.1 thou/uL (0.0-0.7); #Lymphocytes 1.5 thou/uL (1.20-3.40); #Monocytes 0.6 thou/uL (0.11-0.59); #Neutrophils 3.9 thou/uL (1.40-6.50); %Basophils 0.6 % (0.0-1.0); %Eosinophils 1.2 % (0.0-10.0); %Lymphocytes 24.9 % (21.0-51.0); %Monocytes 9.9 % (0.0-10.0); %Neutrophils 63.4 % (42.0-75.0); Hemoglobin 12.9 g/dL (12.0-16.0); Mean Corpuscular HGB CONC 32.1 g/dL (32.0-36.0); Mean Corpuscular Hemoglobin 29.2 pg (27.0-31.0); Mean Corpuscular Volume 91.1 fL (78.0-98.0); Mean Platelet Volume 6.5 fL (7.4-10.4); Platelet Count 329 thou/uL (130-400); RBC Distribution Width 13.8 % (11.5-14.5); Red Blood Cell (RBC) Count 4.42 mill/uL (4.20-5.40); White Blood Cell (WBC) Count 6.1 thou/uL (4.8-10.8)
[2021-01-27 06:59] LABS: Anion Gap 15 mmol/L (10-20); BUN (Urea Nitrogen) 16 mg/dL (9.8-20.1); Calc. Creatinine Clearance 54 mL/min (70-130); Calcium 8.4 mg/dL (7.8-10.44); Carbon Dioxide 28 mmol/L (23-31); Chloride 103 mmol/L (98-107); Glucose 124 mg/dL (83-110); Potassium 3.8 mmol/L (3.5-5.1); Sodium 142 mmol/L (136-145)
[2021-01-27] MEDS: Famotidine 20 MG TAB PO SCH (09:13)
[2021-01-27] MEDS: Carvedilol 25 MG TAB PO SCH ×2 (09:14→21:28)
[2021-01-27] MEDS: Magnesium Oxide 400 MG TAB PO SCH ×2 (09:14→21:27)
[2021-01-27] MEDS: Senokot 8.6 MG TAB PO SCH (09:14)
[2021-01-27] MEDS: Apixaban 5 MG TAB PO SCH ×2 (09:14→21:28)
[2021-01-27] MEDS: Amlodipine 10 MG TAB PO SCH (09:16)
[2021-01-27] MEDS: metFORMIN 500 MG TAB PO SCH (09:17)
[2021-01-27] MEDS: Alogliptin 25 MG TAB PO SCH (09:17)
[2021-01-27] MEDS: busPIRone HCl 5 MG TAB PO SCH ×3 (09:17→21:28)
[2021-01-27] MEDS: Potassium Chloride 20 MEQ TAB PO SCH (09:18)
[2021-01-27] MEDS: Lisinopril 20 MG TAB PO SCH (09:18)
[2021-01-27] MEDS: Furosemide 40 MG/4 ML VIAL SLOW IVP SCH (09:18)
[2021-01-27] MEDS: Lantus 1000 UNITS/10 ML VIAL SC SCH (09:19)
[2021-01-27] MEDS: Anastrozole 1 MG TAB PO SCH (09:20)
[2021-01-27] MEDS: HumaLOG 300 UNITS/3 ML VIAL SC PRN (11:59)
[2021-01-27] MEDS: Atorvastatin Calcium 20 MG TAB PO SCH (21:27)
[2021-01-27] MEDS: Donepezil HCl 5 MG TAB PO SCH (21:28)
[2021-01-27] MEDS: cefTRIAXone\\ROCEPHIN 1 GM in Sodium Chloride 0.9% 100 ML IVPB SCH (21:48)
[2021-01-27] MEDS: traZODone HCl 50 MG TAB PO PRN (22:51)
[2021-01-27] MEDS: Azithromycin 500 MG in Sodium Chloride 0.9% 250 ML 250 ML IVPB SCH (23:31)
[2021-01-28 07:55] LABS: #Basophils 0.1 thou/uL (0.0-0.2); #Eosinphils 0.1 thou/uL (0.0-0.7); #Monocytes 0.7 thou/uL (0.11-0.59); #Neutrophils 4.4 thou/uL (1.40-6.50); %Basophils 0.8 % (0.0-1.0); %Eosinophils 1.2 % (0.0-10.0); %Lymphocytes 27.1 % (21.0-51.0); %Monocytes 9.7 % (0.0-10.0); %Neutrophils 61.2 % (42.0-75.0); Mean Corpuscular HGB CONC 32.1 g/dL (32.0-36.0); Mean Corpuscular Hemoglobin 28.8 pg (27.0-31.0); Mean Corpuscular Volume 89.9 fL (78.0-98.0); Mean Platelet Volume 6.6 fL (7.4-10.4); Platelet Count 318 thou/uL (130-400); RBC Distribution Width 13.9 % (11.5-14.5); Red Blood Cell (RBC) Count 4.87 mill/uL (4.20-5.40); White Blood Cell (WBC) Count 7.2 thou/uL (4.8-10.8)
[2021-01-28 08:15] LABS: Anion Gap 14 mmol/L (10-20); BUN (Urea Nitrogen) 14 mg/dL (9.8-20.1); Calc. Creatinine Clearance 61 mL/min (70-130); Calcium 8.7 mg/dL (7.8-10.44); Carbon Dioxide 26 mmol/L (23-31); Chloride 105 mmol/L (98-107); Glucose 111 mg/dL (83-110); Sodium 141 mmol/L (136-145)
[2021-01-28] MEDS: Magnesium Oxide 400 MG TAB PO SCH ×2 (08:53→21:40)
[2021-01-28] MEDS: Anastrozole 1 MG TAB PO SCH (08:54)
[2021-01-28] MEDS: Furosemide 40 MG/4 ML VIAL SLOW IVP SCH (08:54)
[2021-01-28] MEDS: Alogliptin 25 MG TAB PO SCH (08:54)
[2021-01-28] MEDS: metFORMIN 500 MG TAB PO SCH (08:55)
[2021-01-28] MEDS: Famotidine 20 MG TAB PO SCH (08:56)
[2021-01-28] MEDS: Apixaban 5 MG TAB PO SCH ×2 (08:56→21:39)
[2021-01-28] MEDS: Potassium Chloride 20 MEQ TAB PO SCH (08:58)
[2021-01-28] MEDS: Amlodipine 10 MG TAB PO SCH (08:58)
[2021-01-28] MEDS: Senokot 8.6 MG TAB PO SCH (08:59)
[2021-01-28] MEDS: Lisinopril 20 MG TAB PO SCH (08:59)
[2021-01-28] MEDS: busPIRone HCl 5 MG TAB PO SCH ×3 (09:00→21:39)
[2021-01-28] MEDS: Lantus 1000 UNITS/10 ML VIAL SC SCH (09:03)
[2021-01-28] MEDS: Carvedilol 25 MG TAB PO SCH ×2 (09:03→21:40)
[2021-01-28] MEDS: HumaLOG 300 UNITS/3 ML VIAL SC PRN (13:14)
[2021-01-28] MEDS ORDERED: Azithromycin 250 MG TAB PO SCH (21:00)
[2021-01-28] MEDS: Atorvastatin Calcium 20 MG TAB PO SCH (21:39)
[2021-01-28] MEDS: Cefdinir 300 MG CAP PO SCH (21:39)
[2021-01-28] MEDS: Donepezil HCl 5 MG TAB PO SCH (21:40)
[2021-01-28] MEDS: traZODone HCl 50 MG TAB PO PRN (21:40)
[2021-01-29 06:19] LABS: #Basophils 0.1 thou/uL (0.0-0.2); #Eosinphils 0.1 thou/uL (0.0-0.7); #Lymphocytes 2.1 thou/uL (1.20-3.40); #Monocytes 0.8 thou/uL (0.11-0.59); #Neutrophils 4.9 thou/uL (1.40-6.50); %Basophils 0.9 % (0.0-1.0); %Eosinophils 1.1 % (0.0-10.0); %Lymphocytes 26.3 % (21.0-51.0); %Monocytes 10.3 % (0.0-10.0); %Neutrophils 61.4 % (42.0-75.0); Hemoglobin 13.5 g/dL (12.0-16.0); Mean Corpuscular HGB CONC 32.9 g/dL (32.0-36.0); Mean Corpuscular Hemoglobin 29.4 pg (27.0-31.0); Mean Corpuscular Volume 89.6 fL (78.0-98.0); Mean Platelet Volume 6.7 fL (7.4-10.4); Platelet Count 340 thou/uL (130-400); RBC Distribution Width 13.8 % (11.5-14.5); Red Blood Cell (RBC) Count 4.58 mill/uL (4.20-5.40); White Blood Cell (WBC) Count 7.9 thou/uL (4.8-10.8)
[2021-01-29 06:43] LABS: Anion Gap 14 mmol/L (10-20); BUN (Urea Nitrogen) 16 mg/dL (9.8-20.1); Calc. Creatinine Clearance 56 mL/min (70-130); Calcium 8.5 mg/dL (7.8-10.44); Carbon Dioxide 23 mmol/L (23-31); Chloride 107 mmol/L (98-107); Glucose 100 mg/dL (83-110); Potassium 4.2 mmol/L (3.5-5.1); Sodium 140 mmol/L (136-145)
[2021-01-29 07:33] VITALS: TEMP 98.2
[2021-01-29] MEDS: Lantus 1000 UNITS/10 ML VIAL SC SCH (08:17)
[2021-01-29] MEDS: Apixaban 5 MG TAB PO SCH (08:19)
[2021-01-29] MEDS: metFORMIN 500 MG TAB PO SCH (08:20)
[2021-01-29] MEDS: Anastrozole 1 MG TAB PO SCH (08:20)
[2021-01-29] MEDS: Carvedilol 25 MG TAB PO SCH (08:20)
[2021-01-29] MEDS: Senokot 8.6 MG TAB PO SCH (08:20)
[2021-01-29] MEDS: Amlodipine 10 MG TAB PO SCH (08:20)
[2021-01-29] MEDS: Lisinopril 20 MG TAB PO SCH (08:21)
[2021-01-29] MEDS: Magnesium Oxide 400 MG TAB PO SCH (08:21)
[2021-01-29] MEDS: Alogliptin 25 MG TAB PO SCH (08:21)
[2021-01-29] MEDS: Potassium Chloride 20 MEQ TAB PO SCH (08:21)
[2021-01-29] MEDS: Cefdinir 300 MG CAP PO SCH (08:21)
[2021-01-29] MEDS: Famotidine 20 MG TAB PO SCH (08:21)
[2021-01-29] MEDS: busPIRone HCl 5 MG TAB PO SCH ×2 (08:21→14:53)
[2021-01-29 08:29] VITALS: BP 156/67
[2021-01-29] MEDS ORDERED: Furosemide 20 MG TAB PO SCH (09:00)
== END 2021-01-29 16:04 | disposition home health service (06) | DRG 291 ==
LOC: ERS 16:12 → T4-B 19:22
PROVIDERS: ADMIT Internal Medicine; ATTEND Internal Medicine
DX: I11.0 Hypertensive heart disease with heart failure (principal); J96.01 Acute respiratory failure with hypoxia; J18.9 Pneumonia, unspecified organism; N39.0 Urinary tract infection, site not specified; I50.33 Acute on chronic diastolic (congestive) heart failure; Z66 Do not resuscitate; Z20.822 Contact with and (suspected) exposure to COVID-19; B96.20 Unspecified Escherichia coli [E. coli] as the cause of diseases classified elsewhere; M19.011 Primary osteoarthritis, right shoulder; E11.9 Type 2 diabetes mellitus without complications; F41.9 Anxiety disorder, unspecified; F03.90 Unspecified dementia, unspecified severity, without behavioral disturbance, psychotic disturbance, mood disturbance, and anxiety; E78.5 Hyperlipidemia, unspecified; E87.6 Hypokalemia; I48.0 Paroxysmal atrial fibrillation; F32.9 Major depressive disorder, single episode, unspecified; Z88.2 Allergy status to sulfonamides; Z86.73 Personal history of transient ischemic attack (TIA), and cerebral infarction without residual deficits; Z87.891 Personal history of nicotine dependence; Z79.899 Other long term (current) drug therapy; Z79.4 Long term (current) use of insulin; Z79.01 Long term (current) use of anticoagulants; Z28.21 Immunization not carried out because of patient refusal
CPT/HCPCS: 0240U; 36415; 36416; 51701; 71045; 71275; 80048; 80053; 81003; 81015; 82550; 83690; 83880; 84484; 85025; 85379; 87077; 87086; 87186; 93005; 96365; 96367; J0456; J0692; J0696; J1815; J1940; J3370; J3490; J7050; Q9967

== ENCOUNTER 2021-02-07 18:09 | Inpatient (IN) | payer MEDICARE ==
[2021-02-07 18:58] LABS: #Eosinphils 0.1 thou/uL (0.0-0.7); #Lymphocytes 1.7 thou/uL (1.20-3.40); #Monocytes 1.1 thou/uL (0.11-0.59); #Neutrophils 7.2 thou/uL (1.40-6.50); %Basophils 0.5 % (0.0-1.0); %Eosinophils 0.9 % (0.0-10.0); %Lymphocytes 16.4 % (21.0-51.0); %Monocytes 11.2 % (0.0-10.0); %Neutrophils 71.1 % (42.0-75.0); Hemoglobin 13.2 g/dL (12.0-16.0); Mean Corpuscular HGB CONC 33.1 g/dL (32.0-36.0); Mean Corpuscular Volume 90.6 fL (78.0-98.0); Mean Platelet Volume 6.7 fL (7.4-10.4); Platelet Count 310 thou/uL (130-400); RBC Distribution Width 14.4 % (11.5-14.5); Red Blood Cell (RBC) Count 4.39 mill/uL (4.20-5.40); White Blood Cell (WBC) Count 10.1 thou/uL (4.8-10.8)
[2021-02-07 19:19] LABS: ALT (SGPT) 13 U/L (8-55); AST (SGOT) 18 U/L (5-34); Alkaline Phosphatase 65 U/L (40-110); Anion Gap 14 mmol/L (10-20); BUN (Urea Nitrogen) 16 mg/dL (9.8-20.1); Bilirubin, Total 0.7 mg/dL (0.2-1.2); Calc. Creatinine Clearance 0 mL/min (70-130); Calcium 8.5 mg/dL (7.8-10.44); Carbon Dioxide 26 mmol/L (23-31); Chloride 104 mmol/L (98-107); Globulin 3.1 g/dL (2.4-3.5); Glucose 220 mg/dL (83-110); Potassium 3.8 mmol/L (3.5-5.1); Protein, Total 7.1 g/dL (5.8-8.1); Sodium 140 mmol/L (136-145)
[2021-02-07] MEDS ORDERED: cefTRIAXone\\ROCEPHIN 2 GM VIAL ONE (20:15)
[2021-02-07] MEDS ORDERED: Furosemide 40 MG/4 ML VIAL ONE (22:50)
[2021-02-07 22:59] LABS: SARS-CoV-2 NAA Rapid Test Not Detected (NotDetected)
[2021-02-08] MEDS ORDERED: Acetaminophen 325 MG TAB PO PRN (03:17)
[2021-02-08] MEDS ORDERED: Dextrose 5% in Water 1,000 ML IV PRN (03:19)
[2021-02-08] MEDS ORDERED: Dextrose 50% Abboject 50 ML SYRINGE SLOW IVP PRN (03:19)
[2021-02-08] MEDS ORDERED: Furosemide 20 MG/2 ML VIAL ONE ×2 (06:03→14:13)
[2021-02-08] MEDS: Furosemide 20 MG/2 ML VIAL SLOW IVP SCH ×2 (06:10→14:26)
[2021-02-08 07:34] LABS: #Eosinphils 0.1 thou/uL (0.0-0.7); #Lymphocytes 1.3 thou/uL (1.20-3.40); #Monocytes 0.8 thou/uL (0.11-0.59); #Neutrophils 5.6 thou/uL (1.40-6.50); %Basophils 0.5 % (0.0-1.0); %Lymphocytes 16.3 % (21.0-51.0); %Monocytes 10.6 % (0.0-10.0); %Neutrophils 71.5 % (42.0-75.0); Hemoglobin 12.4 g/dL (12.0-16.0); Mean Corpuscular HGB CONC 32.4 g/dL (32.0-36.0); Mean Corpuscular Hemoglobin 29.3 pg (27.0-31.0); Mean Corpuscular Volume 90.6 fL (78.0-98.0); Mean Platelet Volume 6.8 fL (7.4-10.4); Platelet Count 279 thou/uL (130-400); RBC Distribution Width 14.2 % (11.5-14.5); Red Blood Cell (RBC) Count 4.22 mill/uL (4.20-5.40); White Blood Cell (WBC) Count 7.8 thou/uL (4.8-10.8)
[2021-02-08 07:42] LABS: Anion Gap 16 mmol/L (10-20); BUN (Urea Nitrogen) 12 mg/dL (9.8-20.1); Calc. Creatinine Clearance 61 mL/min (70-130); Calcium 8.4 mg/dL (7.8-10.44); Carbon Dioxide 27 mmol/L (23-31); Chloride 101 mmol/L (98-107); Glucose 143 mg/dL (83-110); Potassium 3.5 mmol/L (3.5-5.1); Sodium 140 mmol/L (136-145)
[2021-02-08] MEDS: Apixaban 2.5 MG TAB PO SCH ×2 (08:20→21:39)
[2021-02-08] MEDS ORDERED: HumaLOG 300 UNITS/3 ML VIAL ONE (11:35)
[2021-02-08] MEDS: HumaLOG 300 UNITS/3 ML VIAL SC PRN (11:36)
[2021-02-08] MEDS ORDERED: Non-Formulary Item 1 EACH (Hydralazine Hcl [Hydralazine Hcl] 50 MG Tablet) PO SCH (14:00)
[2021-02-08] MEDS ORDERED: hydrALAZINE 25 MG TAB ONE (14:13)
[2021-02-08] MEDS: hydrALAZINE 25 MG TAB PO SCH ×2 (14:25→21:39)
[2021-02-08] MEDS ORDERED: Non-Formulary Item 1 EACH (Carvedilol [Coreg] 12.5 MG Tab) PO SCH (21:00)
[2021-02-08] MEDS: Atorvastatin Calcium 20 MG TAB PO SCH (21:39)
[2021-02-08] MEDS: Carvedilol 25 MG TAB PO SCH (21:39)
[2021-02-08] MEDS: busPIRone HCl 5 MG TAB PO SCH (21:39)
[2021-02-09] MEDS: Vancomycin 1.5 GRAM/300 ML BAG 1.5 GM in Premix Bag 1 BAG IVPB SCH ×2 (00:20→23:31)
[2021-02-09 04:48] LABS: #Basophils 0.1 thou/uL (0.0-0.2); #Eosinphils 0.1 thou/uL (0.0-0.7); #Lymphocytes 1.6 thou/uL (1.20-3.40); #Monocytes 0.9 thou/uL (0.11-0.59); #Neutrophils 4.6 thou/uL (1.40-6.50); %Basophils 0.7 % (0.0-1.0); %Eosinophils 1.1 % (0.0-10.0); %Lymphocytes 22.5 % (21.0-51.0); %Monocytes 12.3 % (0.0-10.0); %Neutrophils 63.5 % (42.0-75.0); Hemoglobin 12.2 g/dL (12.0-16.0); Mean Corpuscular HGB CONC 31.2 g/dL (32.0-36.0); Mean Corpuscular Volume 89.8 fL (78.0-98.0); Mean Platelet Volume 6.8 fL (7.4-10.4); Platelet Count 305 thou/uL (130-400); RBC Distribution Width 14.2 % (11.5-14.5); Red Blood Cell (RBC) Count 4.35 mill/uL (4.20-5.40); White Blood Cell (WBC) Count 7.3 thou/uL (4.8-10.8)
[2021-02-09 05:10] LABS: Anion Gap 14 mmol/L (10-20); BUN (Urea Nitrogen) 14 mg/dL (9.8-20.1); Calc. Creatinine Clearance 63 mL/min (70-130); Calcium 8.2 mg/dL (7.8-10.44); Carbon Dioxide 27 mmol/L (23-31); Chloride 102 mmol/L (98-107); Glucose 147 mg/dL (83-110); Potassium 3.5 mmol/L (3.5-5.1); Sodium 139 mmol/L (136-145)
[2021-02-09] MEDS: hydrALAZINE 25 MG TAB PO SCH ×3 (05:15→20:27)
[2021-02-09] MEDS: Furosemide 20 MG/2 ML VIAL SLOW IVP SCH ×2 (05:15→13:00)
[2021-02-09] MEDS ORDERED: Amlodipine 10 MG TAB PO SCH (09:00)
[2021-02-09] MEDS: Amlodipine 5 MG TAB PO SCH (09:24)
[2021-02-09] MEDS: busPIRone HCl 5 MG TAB PO SCH ×2 (09:25→20:27)
[2021-02-09] MEDS: Famotidine 20 MG TAB PO SCH (09:25)
[2021-02-09] MEDS: Apixaban 2.5 MG TAB PO SCH ×2 (09:25→20:28)
[2021-02-09] MEDS: Carvedilol 25 MG TAB PO SCH ×2 (09:25→20:27)
[2021-02-09] MEDS: Lisinopril 20 MG TAB PO SCH (09:26)
[2021-02-09] MEDS: HumaLOG 300 UNITS/3 ML VIAL SC PRN (12:57)
[2021-02-09] MEDS: metFORMIN 500 MG TAB PO SCH (20:27)
[2021-02-09] MEDS: Atorvastatin Calcium 20 MG TAB PO SCH (20:27)
[2021-02-09] MEDS: Donepezil HCl 5 MG TAB PO SCH (20:27)
[2021-02-09] MEDS ORDERED: HumaLOG 300 UNITS/3 ML VIAL SC PRN (20:41)
[2021-02-09] MEDS: traZODone HCl 50 MG TAB PO PRN (20:53)
[2021-02-10 04:25] LABS: #Eosinphils 0.1 thou/uL (0.0-0.7); #Lymphocytes 1.8 thou/uL (1.20-3.40); #Neutrophils 3.8 thou/uL (1.40-6.50); %Basophils 0.3 % (0.0-1.0); %Eosinophils 1.2 % (0.0-10.0); %Lymphocytes 27.1 % (21.0-51.0); %Monocytes 14.3 % (0.0-10.0); %Neutrophils 57.1 % (42.0-75.0); Hemoglobin 12.3 g/dL (12.0-16.0); Mean Corpuscular Hemoglobin 29.8 pg (27.0-31.0); Mean Corpuscular Volume 90.2 fL (78.0-98.0); Mean Platelet Volume 6.7 fL (7.4-10.4); Platelet Count 283 thou/uL (130-400); RBC Distribution Width 14.3 % (11.5-14.5); Red Blood Cell (RBC) Count 4.12 mill/uL (4.20-5.40); White Blood Cell (WBC) Count 6.6 thou/uL (4.8-10.8)
[2021-02-10 04:43] LABS: Anion Gap 12 mmol/L (10-20); BUN (Urea Nitrogen) 16 mg/dL (9.8-20.1); Calc. Creatinine Clearance 61 mL/min (70-130); Calcium 8.3 mg/dL (7.8-10.44); Carbon Dioxide 29 mmol/L (23-31); Chloride 103 mmol/L (98-107); Glucose 127 mg/dL (83-110); Potassium 3.4 mmol/L (3.5-5.1); Sodium 141 mmol/L (136-145)
[2021-02-10] MEDS: Furosemide 20 MG/2 ML VIAL SLOW IVP SCH (05:43)
[2021-02-10] MEDS: hydrALAZINE 25 MG TAB PO SCH ×2 (05:43→14:52)
[2021-02-10] MEDS: Anastrozole 1 MG TAB PO SCH (08:44)
[2021-02-10] MEDS: Amlodipine 5 MG TAB PO SCH (08:44)
[2021-02-10] MEDS: Carvedilol 25 MG TAB PO SCH (08:44)
[2021-02-10] MEDS: Lisinopril 20 MG TAB PO SCH (08:44)
[2021-02-10] MEDS: metFORMIN 500 MG TAB PO SCH ×2 (08:44→20:04)
[2021-02-10] MEDS: Apixaban 2.5 MG TAB PO SCH ×2 (08:44→20:04)
[2021-02-10] MEDS: Lantus 1000 UNITS/10 ML VIAL SC SCH (08:45)
[2021-02-10] MEDS: busPIRone HCl 5 MG TAB PO SCH ×2 (08:45→20:04)
[2021-02-10] MEDS: Famotidine 20 MG TAB PO SCH (08:45)
[2021-02-10] MEDS ORDERED: Non-Formulary Item 1 EACH (Insulin Detemir [Levemir Flextouch] 100 UNIT/ML Insuln.Pen) SC SCH (09:00)
[2021-02-10] MEDS: HumaLOG 300 UNITS/3 ML VIAL SC PRN (11:41)
[2021-02-10] MEDS ORDERED: Potassium Chloride 20 MEQ TAB PO SCH (12:00)
[2021-02-10] MEDS: Carvedilol 6.25 MG TAB PO SCH (16:48)
[2021-02-10] MEDS: Atorvastatin Calcium 20 MG TAB PO SCH (20:04)
[2021-02-10] MEDS: Donepezil HCl 5 MG TAB PO SCH (20:06)
[2021-02-10 23:26] LABS: Vancomycin, Trough 11.5 ug/mL
[2021-02-11] MEDS: Amlodipine 5 MG TAB PO SCH (08:51)
[2021-02-11] MEDS: Carvedilol 6.25 MG TAB PO SCH ×2 (08:51→16:15)
[2021-02-11] MEDS: metFORMIN 500 MG TAB PO SCH ×2 (08:52→21:01)
[2021-02-11] MEDS: Apixaban 2.5 MG TAB PO SCH ×2 (08:52→21:01)
[2021-02-11] MEDS: Anastrozole 1 MG TAB PO SCH (08:52)
[2021-02-11] MEDS: Furosemide 20 MG TAB PO SCH (08:52)
[2021-02-11] MEDS: Famotidine 20 MG TAB PO SCH (08:52)
[2021-02-11] MEDS: busPIRone HCl 5 MG TAB PO SCH ×2 (08:52→21:02)
[2021-02-11] MEDS: Lantus 1000 UNITS/10 ML VIAL SC SCH (08:52)
[2021-02-11] MEDS: Lisinopril 20 MG TAB PO SCH (08:52)
[2021-02-11 10:25] LABS: Potassium 3.8 mmol/L (3.5-5.1)
[2021-02-11] MEDS: HumaLOG 300 UNITS/3 ML VIAL SC PRN (11:22)
[2021-02-11] MEDS: Atorvastatin Calcium 20 MG TAB PO SCH (21:01)
[2021-02-11] MEDS: Donepezil HCl 5 MG TAB PO SCH (21:02)
[2021-02-12 05:28] LABS: Anion Gap 10 mmol/L (10-20); BUN (Urea Nitrogen) 18 mg/dL (9.8-20.1); Calc. Creatinine Clearance 56 mL/min (70-130); Calcium 8.3 mg/dL (7.8-10.44); Carbon Dioxide 29 mmol/L (23-31); Chloride 105 mmol/L (98-107); Glucose 80 mg/dL (83-110); Potassium 3.2 mmol/L (3.5-5.1); Sodium 141 mmol/L (136-145)
[2021-02-12] MEDS: Lantus 1000 UNITS/10 ML VIAL SC SCH (08:58)
[2021-02-12] MEDS: Apixaban 2.5 MG TAB PO SCH ×2 (08:59→20:10)
[2021-02-12] MEDS: Furosemide 20 MG TAB PO SCH (08:59)
[2021-02-12] MEDS: Anastrozole 1 MG TAB PO SCH (08:59)
[2021-02-12] MEDS: Famotidine 20 MG TAB PO SCH (08:59)
[2021-02-12] MEDS: Amlodipine 5 MG TAB PO SCH (08:59)
[2021-02-12] MEDS: Lisinopril 20 MG TAB PO SCH (08:59)
[2021-02-12] MEDS: Carvedilol 6.25 MG TAB PO SCH ×2 (08:59→16:32)
[2021-02-12] MEDS: metFORMIN 500 MG TAB PO SCH ×2 (09:00→20:09)
[2021-02-12] MEDS ORDERED: Potassium Chloride 20 MEQ TAB PO SCH (09:00)
[2021-02-12] MEDS: busPIRone HCl 5 MG TAB PO SCH ×2 (09:00→20:10)
[2021-02-12] MEDS: HumaLOG 300 UNITS/3 ML VIAL SC PRN (11:17)
[2021-02-12] MEDS: Atorvastatin Calcium 20 MG TAB PO SCH (20:09)
[2021-02-12] MEDS: Donepezil HCl 5 MG TAB PO SCH (20:10)
[2021-02-13] MEDS: busPIRone HCl 5 MG TAB PO SCH ×2 (08:23→21:33)
[2021-02-13] MEDS: Furosemide 20 MG TAB PO SCH (08:23)
[2021-02-13] MEDS: Amlodipine 5 MG TAB PO SCH (08:24)
[2021-02-13] MEDS: Lisinopril 20 MG TAB PO SCH (08:24)
[2021-02-13] MEDS: Anastrozole 1 MG TAB PO SCH (08:24)
[2021-02-13] MEDS: Famotidine 20 MG TAB PO SCH (08:24)
[2021-02-13] MEDS: Carvedilol 6.25 MG TAB PO SCH ×2 (08:24→15:39)
[2021-02-13] MEDS: Apixaban 2.5 MG TAB PO SCH ×2 (08:24→21:33)
[2021-02-13] MEDS: metFORMIN 500 MG TAB PO SCH ×2 (08:24→21:34)
[2021-02-13] MEDS: Lantus 1000 UNITS/10 ML VIAL SC SCH (08:25)
[2021-02-13 10:10] LABS: Anion Gap 15 mmol/L (10-20); BUN (Urea Nitrogen) 13 mg/dL (9.8-20.1); Calc. Creatinine Clearance 56 mL/min (70-130); Calcium 8.5 mg/dL (7.8-10.44); Carbon Dioxide 25 mmol/L (23-31); Chloride 104 mmol/L (98-107); Glucose 161 mg/dL (83-110); Potassium 3.5 mmol/L (3.5-5.1); Sodium 140 mmol/L (136-145)
[2021-02-13] MEDS: HumaLOG 300 UNITS/3 ML VIAL SC PRN (11:22)
[2021-02-13] MEDS ORDERED: Furosemide 20 MG/2 ML VIAL SLOW IVP SCH (14:45)
[2021-02-13] MEDS: hydrALAZINE 25 MG TAB PO SCH ×2 (15:39→21:33)
[2021-02-13] MEDS: Atorvastatin Calcium 20 MG TAB PO SCH (21:33)
[2021-02-13] MEDS: Donepezil HCl 5 MG TAB PO SCH (21:34)
[2021-02-14] MEDS: Carvedilol 6.25 MG TAB PO SCH ×2 (10:29→19:58)
[2021-02-14] MEDS: metFORMIN 500 MG TAB PO SCH ×2 (10:30→20:55)
[2021-02-14] MEDS: Furosemide 20 MG TAB PO SCH (10:30)
[2021-02-14] MEDS: hydrALAZINE 25 MG TAB PO SCH ×3 (10:30→20:55)
[2021-02-14] MEDS: Amlodipine 5 MG TAB PO SCH (10:30)
[2021-02-14] MEDS: Apixaban 2.5 MG TAB PO SCH ×2 (10:30→20:54)
[2021-02-14] MEDS: Anastrozole 1 MG TAB PO SCH (10:31)
[2021-02-14] MEDS: Lisinopril 20 MG TAB PO SCH (10:31)
[2021-02-14] MEDS: Famotidine 20 MG TAB PO SCH (10:31)
[2021-02-14] MEDS: busPIRone HCl 5 MG TAB PO SCH ×2 (10:31→20:54)
[2021-02-14] MEDS: Lantus 1000 UNITS/10 ML VIAL SC SCH (12:37)
[2021-02-14] MEDS: HumaLOG 300 UNITS/3 ML VIAL SC PRN (12:43)
[2021-02-14] MEDS ORDERED: hydrALAZINE 25 MG TAB PO SCH (15:45)
[2021-02-14] MEDS: Atorvastatin Calcium 20 MG TAB PO SCH (20:54)
[2021-02-14] MEDS: Donepezil HCl 5 MG TAB PO SCH (20:56)
[2021-02-15] MEDS: metFORMIN 500 MG TAB PO SCH ×2 (08:53→20:08)
[2021-02-15] MEDS: Anastrozole 1 MG TAB PO SCH (08:53)
[2021-02-15] MEDS: Famotidine 20 MG TAB PO SCH (08:53)
[2021-02-15] MEDS: Furosemide 20 MG TAB PO SCH (08:53)
[2021-02-15] MEDS: Carvedilol 6.25 MG TAB PO SCH ×2 (08:54→17:11)
[2021-02-15] MEDS: Amlodipine 5 MG TAB PO SCH (08:54)
[2021-02-15] MEDS: Apixaban 2.5 MG TAB PO SCH ×2 (08:54→20:11)
[2021-02-15] MEDS: hydrALAZINE 25 MG TAB PO SCH ×3 (08:55→20:11)
[2021-02-15] MEDS: busPIRone HCl 5 MG TAB PO SCH ×2 (08:55→20:11)
[2021-02-15] MEDS: Lisinopril 20 MG TAB PO SCH (08:55)
[2021-02-15] MEDS: Lantus 1000 UNITS/10 ML VIAL SC SCH (08:56)
[2021-02-15] MEDS: Atorvastatin Calcium 20 MG TAB PO SCH (20:08)
[2021-02-15] MEDS: Donepezil HCl 5 MG TAB PO SCH (20:11)
[2021-02-16] MEDS: Apixaban 2.5 MG TAB PO SCH ×2 (09:20→21:01)
[2021-02-16] MEDS: Anastrozole 1 MG TAB PO SCH (09:21)
[2021-02-16] MEDS: Carvedilol 6.25 MG TAB PO SCH ×2 (09:43→17:09)
[2021-02-16] MEDS: Lisinopril 20 MG TAB PO SCH (09:44)
[2021-02-16] MEDS: hydrALAZINE 25 MG TAB PO SCH ×3 (09:44→21:00)
[2021-02-16] MEDS: busPIRone HCl 5 MG TAB PO SCH ×2 (09:44→21:00)
[2021-02-16] MEDS: Famotidine 20 MG TAB PO SCH (09:45)
[2021-02-16] MEDS: metFORMIN 500 MG TAB PO SCH ×2 (09:45→21:01)
[2021-02-16] MEDS: Furosemide 20 MG TAB PO SCH (09:49)
[2021-02-16] MEDS: Amlodipine 5 MG TAB PO SCH (09:49)
[2021-02-16] MEDS: Lantus 1000 UNITS/10 ML VIAL SC SCH (09:50)
[2021-02-16] MEDS: Donepezil HCl 5 MG TAB PO SCH (21:00)
[2021-02-16] MEDS: Atorvastatin Calcium 20 MG TAB PO SCH (21:01)
[2021-02-17] MEDS: Lisinopril 20 MG TAB PO SCH (08:53)
[2021-02-17] MEDS: hydrALAZINE 25 MG TAB PO SCH ×3 (08:54→21:12)
[2021-02-17] MEDS: Furosemide 20 MG TAB PO SCH (08:54)
[2021-02-17] MEDS: Famotidine 20 MG TAB PO SCH (08:54)
[2021-02-17] MEDS: Carvedilol 6.25 MG TAB PO SCH ×2 (08:54→17:22)
[2021-02-17] MEDS: Anastrozole 1 MG TAB PO SCH (08:54)
[2021-02-17] MEDS: Amlodipine 5 MG TAB PO SCH (08:54)
[2021-02-17] MEDS: metFORMIN 500 MG TAB PO SCH ×2 (08:54→21:12)
[2021-02-17] MEDS: busPIRone HCl 5 MG TAB PO SCH ×2 (08:57→21:12)
[2021-02-17] MEDS: Lantus 1000 UNITS/10 ML VIAL SC SCH (08:59)
[2021-02-17] MEDS: Apixaban 2.5 MG TAB PO SCH ×2 (09:04→21:12)
[2021-02-17 12:40] VITALS: BMI 19.1
[2021-02-17] MEDS: Donepezil HCl 5 MG TAB PO SCH (21:12)
[2021-02-17] MEDS: Atorvastatin Calcium 20 MG TAB PO SCH (21:12)
[2021-02-17] MEDS: Melatonin 3 MG TAB PO PRN (21:16)
[2021-02-18 08:05] LABS: #Basophils 0.1 thou/uL (0.0-0.2); #Eosinphils 0.1 thou/uL (0.0-0.7); #Lymphocytes 1.5 thou/uL (1.20-3.40); #Monocytes 0.7 thou/uL (0.11-0.59); #Neutrophils 4.9 thou/uL (1.40-6.50); %Basophils 0.9 % (0.0-1.0); %Lymphocytes 20.5 % (21.0-51.0); %Monocytes 10.1 % (0.0-10.0); %Neutrophils 67.5 % (42.0-75.0); Hemoglobin 13.8 g/dL (12.0-16.0); Mean Corpuscular HGB CONC 33.1 g/dL (32.0-36.0); Mean Corpuscular Volume 90.6 fL (78.0-98.0); Mean Platelet Volume 6.5 fL (7.4-10.4); Platelet Count 301 thou/uL (130-400); RBC Distribution Width 13.9 % (11.5-14.5); Red Blood Cell (RBC) Count 4.58 mill/uL (4.20-5.40); White Blood Cell (WBC) Count 7.2 thou/uL (4.8-10.8)
[2021-02-18 08:24] LABS: Anion Gap 14 mmol/L (10-20); BUN (Urea Nitrogen) 11 mg/dL (9.8-20.1); Calc. Creatinine Clearance 55 mL/min (70-130); Calcium 8.6 mg/dL (7.8-10.44); Carbon Dioxide 25 mmol/L (23-31); Chloride 103 mmol/L (98-107); Glucose 119 mg/dL (83-110); Potassium 3.1 mmol/L (3.5-5.1); Sodium 139 mmol/L (136-145)
[2021-02-18] MEDS: Famotidine 20 MG TAB PO SCH (09:34)
[2021-02-18] MEDS: Anastrozole 1 MG TAB PO SCH (09:34)
[2021-02-18] MEDS: busPIRone HCl 5 MG TAB PO SCH ×2 (09:34→20:11)
[2021-02-18] MEDS: Amlodipine 5 MG TAB PO SCH (09:35)
[2021-02-18] MEDS: metFORMIN 500 MG TAB PO SCH ×2 (09:35→20:13)
[2021-02-18] MEDS: Furosemide 20 MG TAB PO SCH (09:35)
[2021-02-18] MEDS: Lisinopril 20 MG TAB PO SCH (09:35)
[2021-02-18] MEDS: hydrALAZINE 25 MG TAB PO SCH ×3 (09:36→20:11)
[2021-02-18] MEDS: Carvedilol 6.25 MG TAB PO SCH ×2 (09:36→16:38)
[2021-02-18] MEDS: Lantus 1000 UNITS/10 ML VIAL SC SCH (09:39)
[2021-02-18] MEDS ORDERED: Potassium Chloride 20 MEQ TAB PO SCH (11:00)
[2021-02-18] MEDS: Apixaban 2.5 MG TAB PO SCH ×2 (13:01→20:11)
[2021-02-18] MEDS: HumaLOG 300 UNITS/3 ML VIAL SC PRN (13:03)
[2021-02-18] MEDS: Atorvastatin Calcium 20 MG TAB PO SCH (20:11)
[2021-02-18] MEDS: Donepezil HCl 5 MG TAB PO SCH (20:14)
[2021-02-18] MEDS: Melatonin 3 MG TAB PO PRN (20:14)
[2021-02-19] MEDS: Lisinopril 20 MG TAB PO SCH (09:16)
[2021-02-19] MEDS: Famotidine 20 MG TAB PO SCH (09:16)
[2021-02-19] MEDS: Furosemide 20 MG TAB PO SCH (09:16)
[2021-02-19] MEDS: metFORMIN 500 MG TAB PO SCH ×2 (09:16→20:16)
[2021-02-19] MEDS: Amlodipine 5 MG TAB PO SCH (09:16)
[2021-02-19] MEDS: Carvedilol 6.25 MG TAB PO SCH ×2 (09:16→16:07)
[2021-02-19] MEDS: Apixaban 2.5 MG TAB PO SCH ×2 (09:17→20:26)
[2021-02-19] MEDS: busPIRone HCl 5 MG TAB PO SCH ×2 (09:17→20:16)
[2021-02-19] MEDS: hydrALAZINE 25 MG TAB PO SCH ×3 (09:17→20:16)
[2021-02-19] MEDS: Lantus 1000 UNITS/10 ML VIAL SC SCH (11:00)
[2021-02-19] MEDS: Anastrozole 1 MG TAB PO SCH (13:08)
[2021-02-19] MEDS: Donepezil HCl 5 MG TAB PO SCH (20:16)
[2021-02-19] MEDS: Melatonin 3 MG TAB PO PRN (20:16)
[2021-02-19] MEDS: Atorvastatin Calcium 20 MG TAB PO SCH (20:16)
[2021-02-20] MEDS: Apixaban 2.5 MG TAB PO SCH ×2 (08:40→21:30)
[2021-02-20] MEDS: Anastrozole 1 MG TAB PO SCH (08:40)
[2021-02-20] MEDS: Furosemide 20 MG TAB PO SCH (08:40)
[2021-02-20] MEDS: Famotidine 20 MG TAB PO SCH (08:40)
[2021-02-20] MEDS: metFORMIN 500 MG TAB PO SCH ×2 (08:41→21:30)
[2021-02-20] MEDS: busPIRone HCl 5 MG TAB PO SCH ×2 (08:41→21:30)
[2021-02-20] MEDS: Carvedilol 6.25 MG TAB PO SCH ×2 (08:43→16:37)
[2021-02-20] MEDS: Amlodipine 5 MG TAB PO SCH (08:44)
[2021-02-20] MEDS: Lantus 1000 UNITS/10 ML VIAL SC SCH (08:46)
[2021-02-20] MEDS: Lisinopril 20 MG TAB PO SCH (12:50)
[2021-02-20] MEDS: hydrALAZINE 25 MG TAB PO SCH ×3 (12:51→21:30)
[2021-02-20] MEDS: Atorvastatin Calcium 20 MG TAB PO SCH (21:30)
[2021-02-20] MEDS: traZODone HCl 50 MG TAB PO PRN (21:31)
[2021-02-20] MEDS: Donepezil HCl 5 MG TAB PO SCH (21:32)
[2021-02-21 08:21] VITALS: TEMP 97.5
[2021-02-21] MEDS: Lisinopril 20 MG TAB PO SCH (09:42)
[2021-02-21] MEDS: Famotidine 20 MG TAB PO SCH (09:42)
[2021-02-21] MEDS: Carvedilol 6.25 MG TAB PO SCH (09:42)
[2021-02-21] MEDS: hydrALAZINE 25 MG TAB PO SCH ×2 (09:42→15:17)
[2021-02-21] MEDS: Amlodipine 5 MG TAB PO SCH (09:44)
[2021-02-21] MEDS: Furosemide 20 MG TAB PO SCH (09:44)
[2021-02-21] MEDS: busPIRone HCl 5 MG TAB PO SCH (09:44)
[2021-02-21] MEDS: Anastrozole 1 MG TAB PO SCH (09:44)
[2021-02-21] MEDS: Apixaban 2.5 MG TAB PO SCH (09:44)
[2021-02-21] MEDS: metFORMIN 500 MG TAB PO SCH (09:44)
[2021-02-21] MEDS: Lantus 1000 UNITS/10 ML VIAL SC SCH (09:45)
[2021-02-21] MEDS: HumaLOG 300 UNITS/3 ML VIAL SC PRN (11:31)
[2021-02-21 15:17] VITALS: BP 117/62
== END 2021-02-21 16:11 | DRG 291 ==
LOC: ERS 18:09 → ERHOLD 22:34 → 2NO 02-08 15:46 → T4-B 02-15 18:49
PROVIDERS: ADMIT Internal Medicine; ATTEND Internal Medicine
DX: I11.0 Hypertensive heart disease with heart failure (principal); J96.01 Acute respiratory failure with hypoxia; G30.9 Alzheimer's disease, unspecified; I50.33 Acute on chronic diastolic (congestive) heart failure; F02.80 Dementia in other diseases classified elsewhere, unspecified severity, without behavioral disturbance, psychotic disturbance, mood disturbance, and anxiety; Z20.822 Contact with and (suspected) exposure to COVID-19; I48.0 Paroxysmal atrial fibrillation; E11.9 Type 2 diabetes mellitus without complications; E78.5 Hyperlipidemia, unspecified; M19.011 Primary osteoarthritis, right shoulder; E87.6 Hypokalemia; Z86.73 Personal history of transient ischemic attack (TIA), and cerebral infarction without residual deficits; Z88.2 Allergy status to sulfonamides; Z79.899 Other long term (current) drug therapy; Z79.4 Long term (current) use of insulin; Z79.01 Long term (current) use of anticoagulants; Z85.3 Personal history of malignant neoplasm of breast; Z79.811 Long term (current) use of aromatase inhibitors
CPT/HCPCS: 0240U; 36415; 36416; 71045; 71275; 80048; 80053; 80202; 83735; 83880; 84132; 84484; 85025; 87040; 87149; 93005; 94150; 94760; 96365; 96375; J0696; J1815; J1940; J3370; Q9967

== ENCOUNTER 2021-10-11 15:09 | Emergency (ER) | payer MEDICARE | END 2021-10-11 19:59 | LOC: ERS 15:09 | DX: S80.11XA Contusion of right lower leg, initial encounter (principal); I10 Essential (primary) hypertension; E11.9 Type 2 diabetes mellitus without complications; E78.5 Hyperlipidemia, unspecified; K21.9 Gastro-esophageal reflux disease without esophagitis; Z79.899 Other long term (current) drug therapy; Z79.01 Long term (current) use of anticoagulants; Z87.891 Personal history of nicotine dependence; W18.30XA Fall on same level, unspecified, initial encounter ==

== ENCOUNTER 2022-07-10 08:39 | Inpatient (IN) | payer MEDICARE ==
[2022-07-10 09:36] LABS: #Basophils 0.1 thou/uL (0.0-0.2); #Lymphocytes 1.5 thou/uL (1.20-3.40); #Monocytes 0.6 thou/uL (0.11-0.59); #Neutrophils 5.9 thou/uL (1.40-6.50); %Basophils 0.6 % (0.0-1.0); %Eosinophils 0.6 % (0.0-10.0); %Lymphocytes 18.6 % (21.0-51.0); %Monocytes 7.2 % (0.0-10.0); %Neutrophils 72.9 % (42.0-75.0); Hemoglobin 15.7 g/dL (12.0-16.0); Mean Corpuscular HGB CONC 32.8 g/dL (32.0-36.0); Mean Corpuscular Hemoglobin 30.5 pg (27.0-31.0); Mean Platelet Volume 6.9 fL (7.4-10.4); Platelet Count 258 thou/uL (130-400); RBC Distribution Width 13.3 % (11.5-14.5); Red Blood Cell (RBC) Count 5.15 mill/uL (4.20-5.40); White Blood Cell (WBC) Count 8.1 thou/uL (4.8-10.8)
[2022-07-10 09:42] LABS: Bilirubin Negative (Negative); Blood, Urine Negative (Negative); Clarity Turbid (Clear); Glucose, Urine (Dipstick) Normal (Negative); Ketone, Urine Negative (Negative); Leukocyte 250 Leu/uL (Negative); Nitrite Negative (Negative); Protein, Urine (Dipstick) Negative (Neg-Trace); RBC/HPF 0-3 HPF (0-3); Specific Gravity, Urine 1.015 (1.002-1.036); Urobilinogen Normal mg/dL (Less than 2); pH, Urine 7.5 (5.0-9.0)
[2022-07-10 09:53] LABS: Bacteria/HPF 1+ HPF (None Seen)
[2022-07-10 09:54] LABS: ALT (SGPT) 20 U/L (8-55); AST (SGOT) 21 U/L (5-34); Albumin 4.2 g/dL (3.4-4.8); Alkaline Phosphatase 56 U/L (40-110); Anion Gap 15 mmol/L (10-20); BUN (Urea Nitrogen) 14 mg/dL (9.8-20.1); Bilirubin, Total 0.9 mg/dL (0.2-1.2); CK (CPK) 53 U/L (29-168); Calc. Creatinine Clearance 0 mL/min (70-130); Calcium 8.8 mg/dL (7.8-10.44); Carbon Dioxide 25 mmol/L (23-31); Chloride 104 mmol/L (98-107); Estimated GFR 67; Globulin 2.9 g/dL (2.4-3.5); Glucose 145 mg/dL (83-110); Potassium 4.2 mmol/L (3.5-5.1); Protein, Total 7.1 g/dL (5.8-8.1); Sodium 140 mmol/L (136-145)
[2022-07-10] MEDS ORDERED: cefTRIAXone\\ROCEPHIN 1 GM VIAL ONE (09:54)
[2022-07-10] MEDS ORDERED: Aspirin Chewable 81 MG TAB ONE (09:54)
[2022-07-10] MEDS ORDERED: Doxycycline 100 MG in Sodium Chloride 0.9% 100 ML IVPB SCH (10:15)
[2022-07-10 10:45] LABS: SARS-CoV-2 NAA Rapid Test Not Detected (NotDetected)
[2022-07-10] MEDS ORDERED: Dextrose 50% Abboject 50 ML SYRINGE SLOW IVP PRN (11:19)
[2022-07-10] MEDS ORDERED: HumaLOG 300 UNITS/3 ML VIAL SC PRN ×2 (11:19)
[2022-07-10] MEDS ORDERED: Dextrose 5% in Water 1,000 ML IV PRN (11:19)
[2022-07-10] MEDS ORDERED: HYDROcodone/Acetaminophen 5/325 mg Tablet PO PRN (11:20)
[2022-07-10] MEDS ORDERED: Senokot S 8.6-50 MG TAB PO PRN (11:20)
[2022-07-10] MEDS ORDERED: Benzonatate 100 MG CAP PO PRN (11:25)
[2022-07-10] MEDS ORDERED: Furosemide 20 MG TAB PO PRN (11:28)
[2022-07-10] MEDS ORDERED: Ondansetron ODT 4 MG TAB PO PRN (12:55)
[2022-07-10] MEDS ORDERED: Ondansetron PF 4 MG/2 ML Vial IVP PRN (12:55)
[2022-07-10] MEDS ORDERED: Acetaminophen 325 MG TAB PO PRN (12:55)
[2022-07-10] MEDS: Sodium Chloride 0.9% 1,000 ML IV SCH (13:53)
[2022-07-10] MEDS: hydrALAZINE 25 MG TAB PO SCH ×2 (13:53→20:57)
[2022-07-10 16:18] LABS: Legionella Urinary Ag Negative (Negative); Strep pneumo Urine Ag NEGATIVE (NEGATIVE)
[2022-07-10] MEDS: Carvedilol 6.25 MG TAB PO SCH (16:26)
[2022-07-10] MEDS: Donepezil HCl 5 MG TAB PO SCH (20:57)
[2022-07-10] MEDS: Atorvastatin Calcium 20 MG TAB PO SCH (20:58)
[2022-07-10] MEDS: Melatonin 3 MG TAB PO PRN (20:58)
[2022-07-10] MEDS: Apixaban 2.5 MG TAB PO SCH (20:58)
[2022-07-10] MEDS ORDERED: Famotidine 20 MG TAB PO SCH (21:00)
[2022-07-10] MEDS: Doxycycline 100 MG in Sodium Chloride 0.9% 100 ML IVPB SCH (21:41)
[2022-07-11 06:34] LABS: #Eosinphils 0.1 thou/uL (0.0-0.7); #Lymphocytes 1.5 thou/uL (1.20-3.40); #Monocytes 0.7 thou/uL (0.11-0.59); #Neutrophils 5.9 thou/uL (1.40-6.50); %Basophils 0.2 % (0.0-1.0); %Eosinophils 0.9 % (0.0-10.0); %Lymphocytes 18.8 % (21.0-51.0); %Monocytes 8.5 % (0.0-10.0); %Neutrophils 71.6 % (42.0-75.0); Hemoglobin 14.8 g/dL (12.0-16.0); Mean Corpuscular HGB CONC 32.5 g/dL (32.0-36.0); Mean Corpuscular Volume 92.5 fL (78.0-98.0); Mean Platelet Volume 6.7 fL (7.4-10.4); Platelet Count 222 thou/uL (130-400); RBC Distribution Width 13.3 % (11.5-14.5); Red Blood Cell (RBC) Count 4.94 mill/uL (4.20-5.40); White Blood Cell (WBC) Count 8.2 thou/uL (4.8-10.8)
[2022-07-11 06:56] LABS: ALT (SGPT) 18 U/L (8-55); AST (SGOT) 19 U/L (5-34); Albumin 3.9 g/dL (3.4-4.8); Alkaline Phosphatase 52 U/L (40-110); Anion Gap 13 mmol/L (10-20); BUN (Urea Nitrogen) 12 mg/dL (9.8-20.1); Bilirubin, Total 0.7 mg/dL (0.2-1.2); Calc. Creatinine Clearance 60 mL/min (70-130); Calcium 8.2 mg/dL (7.8-10.44); Carbon Dioxide 23 mmol/L (23-31); Chloride 107 mmol/L (98-107); Estimated GFR 80; Globulin 2.7 g/dL (2.4-3.5); Glucose 121 mg/dL (83-110); Potassium 3.8 mmol/L (3.5-5.1); Protein, Total 6.6 g/dL (5.8-8.1); Sodium 139 mmol/L (136-145)
[2022-07-11] MEDS: Anastrozole 1 MG TAB PO SCH (09:22)
[2022-07-11] MEDS: Lisinopril 20 MG TAB PO SCH (09:22)
[2022-07-11] MEDS: Amlodipine 10 MG TAB PO SCH (09:23)
[2022-07-11] MEDS: Famotidine 20 MG TAB PO SCH (09:23)
[2022-07-11] MEDS: Carvedilol 6.25 MG TAB PO SCH ×2 (09:24→16:27)
[2022-07-11] MEDS: Apixaban 2.5 MG TAB PO SCH ×2 (09:24→20:39)
[2022-07-11] MEDS: hydrALAZINE 25 MG TAB PO SCH ×3 (09:24→20:38)
[2022-07-11] MEDS ORDERED: cefTRIAXone\\ROCEPHIN 1 GM in Sodium Chloride 0.9% 100 ML IVPB SCH (10:00)
[2022-07-11] MEDS: Doxycycline 100 MG in Sodium Chloride 0.9% 100 ML IVPB SCH ×2 (10:22→20:39)
[2022-07-11] MEDS: Sodium Chloride 0.9% 1,000 ML IV SCH (13:08)
[2022-07-11] MEDS: Donepezil HCl 5 MG TAB PO SCH (20:37)
[2022-07-11] MEDS: Melatonin 3 MG TAB PO PRN (20:38)
[2022-07-11] MEDS: Atorvastatin Calcium 20 MG TAB PO SCH (20:38)
[2022-07-12 06:24] LABS: #Eosinphils 0.1 thou/uL (0.0-0.7); #Lymphocytes 1.9 thou/uL (1.20-3.40); #Monocytes 0.8 thou/uL (0.11-0.59); #Neutrophils 3.8 thou/uL (1.40-6.50); %Basophils 0.5 % (0.0-1.0); %Lymphocytes 28.4 % (21.0-51.0); %Monocytes 12.2 % (0.0-10.0); Hemoglobin 14.8 g/dL (12.0-16.0); Mean Corpuscular HGB CONC 32.6 g/dL (32.0-36.0); Mean Corpuscular Hemoglobin 30.1 pg (27.0-31.0); Mean Corpuscular Volume 92.3 fL (78.0-98.0); Mean Platelet Volume 6.8 fL (7.4-10.4); Platelet Count 221 thou/uL (130-400); RBC Distribution Width 13.5 % (11.5-14.5); Red Blood Cell (RBC) Count 4.94 mill/uL (4.20-5.40); White Blood Cell (WBC) Count 6.6 thou/uL (4.8-10.8)
[2022-07-12 06:45] LABS: ALT (SGPT) 19 U/L (8-55); AST (SGOT) 17 U/L (5-34); Alkaline Phosphatase 56 U/L (40-110); Anion Gap 13 mmol/L (10-20); BUN (Urea Nitrogen) 11 mg/dL (9.8-20.1); Bilirubin, Total 0.7 mg/dL (0.2-1.2); Calc. Creatinine Clearance 60 mL/min (70-130); Calcium 8.5 mg/dL (7.8-10.44); Carbon Dioxide 24 mmol/L (23-31); Chloride 108 mmol/L (98-107); Estimated GFR 78; Globulin 2.8 g/dL (2.4-3.5); Glucose 137 mg/dL (83-110); Potassium 3.6 mmol/L (3.5-5.1); Protein, Total 6.8 g/dL (5.8-8.1); Sodium 141 mmol/L (136-145)
[2022-07-12] MEDS: Doxycycline 100 MG in Sodium Chloride 0.9% 100 ML IVPB SCH (09:03)
[2022-07-12] MEDS: Apixaban 2.5 MG TAB PO SCH ×2 (09:04→20:03)
[2022-07-12] MEDS: Amlodipine 10 MG TAB PO SCH (09:04)
[2022-07-12] MEDS: hydrALAZINE 25 MG TAB PO SCH ×3 (09:04→20:02)
[2022-07-12] MEDS: Lisinopril 20 MG TAB PO SCH (09:04)
[2022-07-12] MEDS: Anastrozole 1 MG TAB PO SCH (09:05)
[2022-07-12] MEDS: Carvedilol 6.25 MG TAB PO SCH ×2 (09:05→16:38)
[2022-07-12] MEDS: Famotidine 20 MG TAB PO SCH (09:05)
[2022-07-12] MEDS: Azithromycin 250 MG TAB PO SCH (16:38)
[2022-07-12] MEDS: Atorvastatin Calcium 20 MG TAB PO SCH (20:02)
[2022-07-12] MEDS: Donepezil HCl 5 MG TAB PO SCH (20:03)
[2022-07-13] MEDS: Melatonin 3 MG TAB PO PRN ×2 (00:10→20:45)
[2022-07-13 06:09] LABS: #Eosinphils 0.1 thou/uL (0.0-0.7); #Lymphocytes 1.7 thou/uL (1.20-3.40); #Monocytes 0.8 thou/uL (0.11-0.59); #Neutrophils 4.2 thou/uL (1.40-6.50); %Basophils 0.1 % (0.0-1.0); %Lymphocytes 25.2 % (21.0-51.0); %Monocytes 11.3 % (0.0-10.0); %Neutrophils 61.5 % (42.0-75.0); Hemoglobin 14.3 g/dL (12.0-16.0); Mean Corpuscular HGB CONC 32.3 g/dL (32.0-36.0); Mean Corpuscular Hemoglobin 29.6 pg (27.0-31.0); Mean Corpuscular Volume 91.8 fL (78.0-98.0); Mean Platelet Volume 6.6 fL (7.4-10.4); Platelet Count 218 thou/uL (130-400); RBC Distribution Width 13.3 % (11.5-14.5); Red Blood Cell (RBC) Count 4.83 mill/uL (4.20-5.40); White Blood Cell (WBC) Count 6.9 thou/uL (4.8-10.8)
[2022-07-13 06:36] LABS: ALT (SGPT) 18 U/L (8-55); AST (SGOT) 17 U/L (5-34); Albumin 3.8 g/dL (3.4-4.8); Alkaline Phosphatase 49 U/L (40-110); Anion Gap 12 mmol/L (10-20); BUN (Urea Nitrogen) 10 mg/dL (9.8-20.1); Bilirubin, Total 0.8 mg/dL (0.2-1.2); Calc. Creatinine Clearance 65 mL/min (70-130); Calcium 8.4 mg/dL (7.8-10.44); Carbon Dioxide 24 mmol/L (23-31); Chloride 107 mmol/L (98-107); Estimated GFR 84; Globulin 2.5 g/dL (2.4-3.5); Glucose 147 mg/dL (83-110); Potassium 3.5 mmol/L (3.5-5.1); Protein, Total 6.3 g/dL (5.8-8.1); Sodium 139 mmol/L (136-145)
[2022-07-13] MEDS: hydrALAZINE 25 MG TAB PO SCH ×3 (08:24→20:45)
[2022-07-13] MEDS: Amlodipine 10 MG TAB PO SCH (08:24)
[2022-07-13] MEDS: Famotidine 20 MG TAB PO SCH (08:24)
[2022-07-13] MEDS: Lisinopril 20 MG TAB PO SCH (08:24)
[2022-07-13] MEDS: Apixaban 2.5 MG TAB PO SCH ×2 (08:25→20:44)
[2022-07-13] MEDS: Anastrozole 1 MG TAB PO SCH (08:25)
[2022-07-13] MEDS: Carvedilol 6.25 MG TAB PO SCH ×2 (08:25→16:03)
[2022-07-13] MEDS ORDERED: Polyethylene Glycol 3350 17 GM Packet PO PRN (15:09)
[2022-07-13] MEDS: Azithromycin 250 MG TAB PO SCH (16:02)
[2022-07-13] MEDS ORDERED: Carvedilol 25 MG TAB PO SCH (17:00)
[2022-07-13] MEDS: Atorvastatin Calcium 20 MG TAB PO SCH (20:44)
[2022-07-13] MEDS: busPIRone HCl 5 MG TAB PO SCH (20:44)
[2022-07-13] MEDS: Gabapentin 100 MG CAP PO SCH (20:45)
[2022-07-13] MEDS: Donepezil HCl 5 MG TAB PO SCH (20:45)
[2022-07-13] MEDS ORDERED: Non-Formulary Item 1 EACH (Hydralazine Hcl [Hydralazine Hcl] 50 MG Tablet) PO SCH (21:00)
[2022-07-14] MEDS: hydrALAZINE 25 MG TAB PO SCH ×3 (10:12→20:40)
[2022-07-14] MEDS: Amlodipine 10 MG TAB PO SCH (10:12)
[2022-07-14] MEDS: Carvedilol 6.25 MG TAB PO SCH ×2 (10:13→16:09)
[2022-07-14] MEDS: busPIRone HCl 5 MG TAB PO SCH ×2 (10:14→20:41)
[2022-07-14] MEDS: Lisinopril 20 MG TAB PO SCH (10:14)
[2022-07-14] MEDS: Apixaban 2.5 MG TAB PO SCH ×2 (10:14→20:39)
[2022-07-14] MEDS: Potassium Chloride 20 MEQ TAB PO SCH (10:14)
[2022-07-14] MEDS: Senokot 8.6 MG TAB PO SCH (10:15)
[2022-07-14] MEDS: Anastrozole 1 MG TAB PO SCH (10:15)
[2022-07-14] MEDS: Famotidine 20 MG TAB PO SCH (10:15)
[2022-07-14] MEDS: Azithromycin 250 MG TAB PO SCH (16:08)
[2022-07-14] MEDS: Gabapentin 100 MG CAP PO SCH (20:39)
[2022-07-14] MEDS: Atorvastatin Calcium 20 MG TAB PO SCH (20:41)
[2022-07-14] MEDS: Donepezil HCl 5 MG TAB PO SCH (20:41)
[2022-07-15] MEDS: busPIRone HCl 5 MG TAB PO SCH ×2 (10:02→21:46)
[2022-07-15] MEDS: Potassium Chloride 20 MEQ TAB PO SCH (10:02)
[2022-07-15] MEDS: Famotidine 20 MG TAB PO SCH (10:03)
[2022-07-15] MEDS: Apixaban 2.5 MG TAB PO SCH ×2 (10:03→21:46)
[2022-07-15] MEDS: Amlodipine 10 MG TAB PO SCH (10:04)
[2022-07-15] MEDS: Senokot 8.6 MG TAB PO SCH (10:04)
[2022-07-15] MEDS: Lisinopril 20 MG TAB PO SCH (10:05)
[2022-07-15] MEDS: Carvedilol 6.25 MG TAB PO SCH ×2 (10:05→16:48)
[2022-07-15] MEDS: hydrALAZINE 25 MG TAB PO SCH ×3 (10:05→21:51)
[2022-07-15] MEDS: Anastrozole 1 MG TAB PO SCH (10:06)
[2022-07-15 16:28] VITALS: BMI 25.8
[2022-07-15] MEDS: Gabapentin 100 MG CAP PO SCH (21:46)
[2022-07-15] MEDS: Atorvastatin Calcium 20 MG TAB PO SCH (21:46)
[2022-07-15] MEDS: Donepezil HCl 5 MG TAB PO SCH (21:46)
[2022-07-16] MEDS: busPIRone HCl 5 MG TAB PO SCH (08:34)
[2022-07-16] MEDS: Carvedilol 6.25 MG TAB PO SCH ×2 (08:34→17:33)
[2022-07-16] MEDS: Amlodipine 10 MG TAB PO SCH (08:34)
[2022-07-16] MEDS: hydrALAZINE 25 MG TAB PO SCH ×2 (08:35→16:01)
[2022-07-16] MEDS: Lisinopril 20 MG TAB PO SCH (08:35)
[2022-07-16] MEDS: Famotidine 20 MG TAB PO SCH (08:35)
[2022-07-16] MEDS: Potassium Chloride 20 MEQ TAB PO SCH (08:35)
[2022-07-16] MEDS: Senokot 8.6 MG TAB PO SCH (08:35)
[2022-07-16] MEDS: Apixaban 2.5 MG TAB PO SCH (08:36)
[2022-07-16] MEDS: Anastrozole 1 MG TAB PO SCH (08:58)
[2022-07-16 17:04] VITALS: TEMP 98.1
[2022-07-16 17:33] VITALS: BP 136/76
[2022-07-20] MEDS ORDERED: Alendronate Sodium 70 mg Tablet PO SCH (09:00)
== END 2022-07-16 18:37 | disposition home or self-care (01) | DRG 193 ==
LOC: ERS 08:39 → T4-A 11:11 → OBSVTOIN 07-11 17:10
PROVIDERS: ADMIT Internal Medicine; ATTEND Hospitalist
DX: J18.9 Pneumonia, unspecified organism (principal); J96.01 Acute respiratory failure with hypoxia; I50.32 Chronic diastolic (congestive) heart failure; N39.0 Urinary tract infection, site not specified; J98.11 Atelectasis; I48.0 Paroxysmal atrial fibrillation; E11.9 Type 2 diabetes mellitus without complications; E78.5 Hyperlipidemia, unspecified; G30.9 Alzheimer's disease, unspecified; F02.80 Dementia in other diseases classified elsewhere, unspecified severity, without behavioral disturbance, psychotic disturbance, mood disturbance, and anxiety; Z20.822 Contact with and (suspected) exposure to COVID-19; R13.10 Dysphagia, unspecified; F32.A Depression, unspecified; F41.9 Anxiety disorder, unspecified; B96.5 Pseudomonas (aeruginosa) (mallei) (pseudomallei) as the cause of diseases classified elsewhere; I11.0 Hypertensive heart disease with heart failure; Z86.73 Personal history of transient ischemic attack (TIA), and cerebral infarction without residual deficits; Z85.3 Personal history of malignant neoplasm of breast; Z88.2 Allergy status to sulfonamides; Z79.4 Long term (current) use of insulin; Z79.01 Long term (current) use of anticoagulants; Z79.899 Other long term (current) drug therapy
CPT/HCPCS: 36415; 36416; 51701; 71045; 74230; 80053; 81003; 81015; 82550; 83605; 83880; 84484; 85025; 87040; 87077; 87086; 87186; 87449; 87899; 93005; 94640; 94760; 96365; 96375; 96376; G0378; J0696; J3490; J7050; J7620; U0002